=== PATIENT | female | born 1980 | race Caucasian/White ===

== ENCOUNTER 2017-04-11 19:04 | Emergency (ER) | payer OTHER ==
[~2017-04-11] VITALS: Ht 162.6 cm; Wt 79.9 kg
[2017-04-11] MEDS ORDERED: ZITHROMAX Z-PA250 MG PO (20:17)
[2017-04-11] MEDS ORDERED: ROBITUSSIN AC,T10 ML PO (20:17)
[2017-04-11] MEDS ORDERED: PREDNISONE20 MG PO (20:18)
[2017-04-11] MEDS ORDERED: PHENERGAN1.25 MG/ML PO (20:19)
[2017-04-11 20:26] VITALS: BP 113/82
== END 2017-04-11 20:27 | disposition home or self-care (01) ==
LOC: EME 19:04
DX: J20.9 Acute bronchitis, unspecified (principal); R59.1 Generalized enlarged lymph nodes; R11.2 Nausea with vomiting, unspecified; R19.7 Diarrhea, unspecified; F17.200 Nicotine dependence, unspecified, uncomplicated; R51 Headache
CPT/HCPCS: 71020; 93005; 99281; 99284

== ENCOUNTER 2017-04-18 10:58 | Emergency (ER) | payer OTHER ==
[~2017-04-18] VITALS: Ht 162.6 cm; Wt 81.5 kg
[~2017-04-18 10:58] MED LIST: PHENERGAN1.25 MG/ML PO; PREDNISONE20 MG PO; ROBITUSSIN AC,T10 ML PO; ZITHROMAX Z-PA250 MG PO
[2017-04-18] MEDS ORDERED: LIDOCAINE20 MG/1 M5 PO (13:50)
[2017-04-18] MEDS ORDERED: CHLORASEPTIC177 ML MM (13:50)
[2017-04-18 14:40] VITALS: BP 119/69
== END 2017-04-18 14:44 | disposition home or self-care (01) ==
LOC: EME 10:58
DX: J42 Unspecified chronic bronchitis (principal); J02.9 Acute pharyngitis, unspecified; F17.200 Nicotine dependence, unspecified, uncomplicated; F10.10 Alcohol abuse, uncomplicated
CPT/HCPCS: 94640; 99281; 99283

== ENCOUNTER 2017-04-29 11:48 | Emergency (ER) | payer OTHER ==
[~2017-04-29] VITALS: Ht 160 cm; Wt 81.6 kg
[~2017-04-29 11:48] MED LIST changes: +CHLORASEPTIC177 ML MM; +LIDOCAINE20 MG/1 M5 PO
[2017-04-29 12:56] LABS: MCH 28.3 PG (29.0-34.0); MCHC 33.1 G/DL (30.0-36.0); MCV 85.5 FL (83-99); MEAN PLAT.VOLUME 8.1 uM^3 (9.5-12.4); PLATELET COUNT 373 K/uL (156-360); RBC DIS.WIDTH-SD 46.5 % (39-53); RED BLOOD COUNT 4.56 M/uL (3.80-5.20); WHITE BLOOD COUNT 7.1 K/uL (4.1-10.2)
[2017-04-29 13:04] LABS: CHLORIDE 109 mEq/L (99-109); POTASSIUM 3.7 mEq/L (3.7-5.4); SODIUM 139 mEq/L (136-147)
[2017-04-29] MEDS ORDERED: GABAPENTIN300 MG PO (13:04)
[2017-04-29] MEDS ORDERED: SAPHRIS10 MG SL (13:04)
[2017-04-29] MEDS ORDERED: MONTELUKAST SOD10 MG PO (13:05)
[2017-04-29] MEDS ORDERED: GABAPENTIN800 MG PO (13:05)
[2017-04-29 13:06] LABS: GLUCOSE 101 mg/dL (70-99)
[2017-04-29] MEDS ORDERED: STRATTERA40 MG PO (13:06)
[2017-04-29] MEDS ORDERED: ROPINIROLE HC0.25 MG PO (13:06)
[2017-04-29 13:07] LABS: ANION GAP 8 MEQ/L (2-14)
[2017-04-29] MEDS ORDERED: DOXEPIN HCL25 MG PO (13:07)
[2017-04-29 13:10] LABS: GFR ESTIMATE (CALCULATED) > 59 mL/min/
[2017-04-29 13:11] LABS: UREA NITROGEN (BUN) 14 mg/dL (9-23)
[2017-04-29] MEDS ORDERED: LIDOCAINE20 MG/1 M5 PO (14:57)
[2017-04-29] MEDS ORDERED: PREDNISONE50 MG PO (14:57)
[2017-04-29 15:06] VITALS: BP 138/84
== END 2017-04-29 15:19 | disposition left against medical advice (07) ==
LOC: EME 11:48
DX: J42 Unspecified chronic bronchitis (principal); R07.89 Other chest pain; J02.9 Acute pharyngitis, unspecified; F17.210 Nicotine dependence, cigarettes, uncomplicated
CPT/HCPCS: 71020; 80048; 85027; 93005; 99281; 99285

== ENCOUNTER 2017-09-28 20:17 | Inpatient (IN) | payer OTHER ==
[~2017-09-28] VITALS: Ht 162.6 cm; Wt 70.6 kg
[~2017-09-28 20:17] MED LIST changes: +DOXEPIN HCL25 MG PO; +GABAPENTIN300 MG PO; +GABAPENTIN800 MG PO; +MONTELUKAST SOD10 MG PO; +PREDNISONE50 MG PO; +ROPINIROLE HC0.25 MG PO; +SAPHRIS10 MG SL; +STRATTERA40 MG PO
[2017-09-28 21:08] LABS: HEMATOCRIT 35.3 % (36.0-46.0); MCH 31.5 PG (29.0-34.0); MCV 87.6 FL (83-99); MEAN PLAT.VOLUME 8.3 uM^3 (9.5-12.4); PLATELET COUNT 255 K/uL (156-360); RBC DIS.WIDTH-CV 13.9 % (11.8-14.6); RBC DIS.WIDTH-SD 44.1 % (39-53); RED BLOOD COUNT 4.03 M/uL (3.80-5.20); WHITE BLOOD COUNT 12.1 K/uL (4.1-10.2)
[2017-09-28 21:15] LABS: CHLORIDE 107 mEq/L (99-109); SODIUM 140 mEq/L (136-147)
[2017-09-28 21:16] LABS: GLUCOSE 122 mg/dL (70-99)
[2017-09-28 21:18] LABS: ANION GAP 14 MEQ/L (2-14)
[2017-09-28 21:20] LABS: GFR ESTIMATE (CALCULATED) > 59 mL/min/; SERUM ETHYL ALCOHOL 368 mg/dL
[2017-09-28 21:22] LABS: UREA NITROGEN (BUN) 6 mg/dL (9-23)
[2017-09-28 21:24] LABS: SALICYLATE < 5.0 MG/DL (15-30)
[2017-09-28 22:41] LABS: QUANTITATIVE HCG 41063.5 MIU/ML
[2017-09-28 23:33] LABS: AMPHETAMINE NEGATIVE (500 ng/mL); BENZODIAZEPINES NEGATIVE (150 ng/mL); COCAINE NEGATIVE (150 ng/mL); METHAMPHETAMINE NEGATIVE (500 ng/mL); OPIATES (MORPHINE) NEGATIVE (100 ng/mL); PHENCYCLIDINE NEGATIVE (25 ng/mL); THC CANNABINOIDS NEGATIVE (50 ng/mL); TRICYCLIC ANTIDEPRESSANTS NEGATIVE (300 ng/mL)
[2017-09-28 23:34] LABS: BARBITURATES NEGATIVE (200 ng/mL); INTERNAL CONTROLS VALID? YES; METHADONE NEGATIVE (200 ng/mL); OXYCODONE PRESUMPTIVE POSITIVE (100 ng/mL); PROPOXYPHENE NEGATIVE (300 ng/mL)
[2017-09-29] MEDS ORDERED: GABAPENTIN400 MG PO (11:04)
[2017-09-29] MEDS ORDERED: REQUIP0.25 MG PO (11:05)
[2017-09-29] MEDS ORDERED: DOXEPIN HCL100 MG PO (11:05)
[2017-09-29 11:09] VITALS: BP 135/72
[2017-09-29 11:20] VITALS: BP 135/72
[2017-09-29 15:30] VITALS: BP 124/71
[2017-09-30 08:01] VITALS: BP 105/59
[2017-09-30 15:35] VITALS: BP 129/63
[2017-10-01 07:26] VITALS: BP 110/57
[2017-10-01] MEDS ORDERED: PRENATAL VITAM1 EAC6 PO (11:05)
[2017-10-01] MEDS ORDERED: FOLIC ACID1 MG PO (11:05)
[2017-10-01] MEDS ORDERED: CITALOPRAM HBR10 MG PO (11:05)
[2017-10-01] MEDS ORDERED: OXCARBAZEPINE150 MG PO (11:05)
== END 2017-10-01 13:04 | disposition home or self-care (01) | DRG 781 ==
LOC: EME 20:17 → 1WEST 09-29 09:16 → EDOF 09-29 09:16 → 1WEST 09-29 09:16 → ENRESERV 09-29 10:53 → 1WEST 09-29 10:53
PROVIDERS: Emergency Medicine
DX: O99.342 Other mental disorders complicating pregnancy, second trimester (principal); R45.851 Suicidal ideations; F31.9 Bipolar disorder, unspecified; F60.3 Borderline personality disorder; F41.9 Anxiety disorder, unspecified; O99.312 Alcohol use complicating pregnancy, second trimester; F10.229 Alcohol dependence with intoxication, unspecified; Y90.8 Blood alcohol level of 240 mg/100 ml or more; O99.332 Smoking (tobacco) complicating pregnancy, second trimester; F17.200 Nicotine dependence, unspecified, uncomplicated; O99.512 Diseases of the respiratory system complicating pregnancy, second trimester; J42 Unspecified chronic bronchitis; O99.89 Other specified diseases and conditions complicating pregnancy, childbirth and the puerperium; M79.7 Fibromyalgia; Z56.0 Unemployment, unspecified
CPT/HCPCS: 80048; 84702; 85027; 90837; 97166 GO; 99281; 99284; G0480; J2060; Q0169

== ENCOUNTER 2017-10-07 12:39 | Inpatient (IN) | payer OTHER ==
[2017-10-07] VITALS (15 sets, daily range): BP systolic 121–162; BP diastolic 61–88
[~2017-10-07] VITALS: Ht 162.6 cm; Wt 73.6 kg
[~2017-10-07 12:39] MED LIST changes: +CITALOPRAM HBR10 MG PO; +DOXEPIN HCL100 MG PO; +FOLIC ACID1 MG PO; +GABAPENTIN400 MG PO; +OXCARBAZEPINE150 MG PO; +PRENATAL VITAM1 EAC6 PO; +REQUIP0.25 MG PO
[2017-10-07] MEDS ORDERED: ROXICODONE5 MG PO (13:18)
[2017-10-07] MEDS ORDERED: NEURONTIN400 MG PO (13:18)
[2017-10-07] MEDS ORDERED: DOXEPIN HCL100 MG PO (13:20)
[2017-10-07] MEDS ORDERED: REQUIP0.25 MG PO (13:21)
[2017-10-07 14:10] LABS: AMPHETAMINE NEGATIVE (500 ng/mL); BARBITURATES NEGATIVE (200 ng/mL); BENZODIAZEPINES PRESUMPTIVE POSITIVE (150 ng/mL); COCAINE NEGATIVE (150 ng/mL); METHADONE NEGATIVE (200 ng/mL); METHAMPHETAMINE NEGATIVE (500 ng/mL); OPIATES (MORPHINE) NEGATIVE (100 ng/mL); OXYCODONE PRESUMPTIVE POSITIVE (100 ng/mL); PHENCYCLIDINE NEGATIVE (25 ng/mL); THC CANNABINOIDS NEGATIVE (50 ng/mL); TRICYCLIC ANTIDEPRESSANTS NEGATIVE (300 ng/mL)
[2017-10-07 14:11] LABS: ADD MEDTOX COMMENT Y; INTERNAL CONTROLS VALID? YES; PROPOXYPHENE NEGATIVE (300 ng/mL)
[2017-10-07 14:28] LABS: EOSINOPHIL (%) 0.4 % (0-5); EOSINOPHIL COUNT 0.1 K/uL (0-0.3); IMMATURE GRANULOCYTE (%) 3.6 % (0.0-0.7); IMMATURE GRANULOCYTE COUNT 0.7 K/uL; INSTRUMENT ABS NEUTROPHIL CT 17.5 K/uL; LYMPHOCYTE COUNT 1.4 K/uL (1.0-2.8); MCH 30.3 PG (29.0-34.0); MCHC 33.5 G/DL (30.0-36.0); MCV 90.4 FL (83-99); MEAN PLAT.VOLUME 8.6 uM^3 (9.5-12.4); MONOCYTE (%) 2.9 % (3-12); MONOCYTE COUNT 0.6 K/uL (0-0.8); NEUTROPHIL (%) 86.2 % (45-76); NEUTROPHIL COUNT 17.5 K/uL (1.8-6.4); PLATELET COUNT 191 K/uL (156-360); RBC DIS.WIDTH-CV 13.6 % (11.8-14.6); RBC DIS.WIDTH-SD 44.5 % (39-53); RED BLOOD COUNT 3.43 M/uL (3.80-5.20); WHITE BLOOD COUNT 20.3 K/uL (4.1-10.2)
[2017-10-07 14:36] LABS: BENZODIAZEPINES, URINE SCREEN POSITIVE (200 ng/mL)
[2017-10-07 16:35] LABS: PTT 27.7 SEC (25-37)
[2017-10-07 16:37] LABS: FIBRINOGEN 710 mg/dL (150-450)
[2017-10-07] MEDS ORDERED: MOTRIN800 MG PO (22:39)
[2017-10-07] MEDS ORDERED: AUGMENTIN500 MG PO (22:39)
[2017-10-08 00:23] VITALS: BP 137/63
[2017-10-08 01:22] VITALS: BP 115/63
[2017-10-08 06:04] LABS: EOSINOPHIL (%) 1.1 % (0-5); EOSINOPHIL COUNT 0.2 K/uL (0-0.3); HEMATOCRIT 25.2 % (36.0-46.0); IMMATURE GRANULOCYTE (%) 1.3 % (0.0-0.7); IMMATURE GRANULOCYTE COUNT 0.2 K/uL; INSTRUMENT ABS NEUTROPHIL CT 14.2 K/uL; LYMPHOCYTE COUNT 1.9 K/uL (1.0-2.8); MCHC 34.9 G/DL (30.0-36.0); MCV 91.6 FL (83-99); MEAN PLAT.VOLUME 8.8 uM^3 (9.5-12.4); MONOCYTE (%) 3.7 % (3-12); MONOCYTE COUNT 0.6 K/uL (0-0.8); NEUTROPHIL (%) 82.6 % (45-76); NEUTROPHIL COUNT 14.2 K/uL (1.8-6.4); PLATELET COUNT 147 K/uL (156-360); RBC DIS.WIDTH-CV 13.6 % (11.8-14.6); RBC DIS.WIDTH-SD 45.2 % (39-53); RED BLOOD COUNT 2.75 M/uL (3.80-5.20); WHITE BLOOD COUNT 17.2 K/uL (4.1-10.2)
[2017-10-08 09:13] VITALS: BP 107/61
== END 2017-10-08 15:35 | disposition home or self-care (01) | DRG 774 ==
LOC: LDRP-OP 12:39 → 2WEST 12:40
PROVIDERS: Obstetrics & Gynecology
DX: O42.912 Preterm premature rupture of membranes, unspecified as to length of time between rupture and onset of labor, second trimester (principal); O41.1220 Chorioamnionitis, second trimester, not applicable or unspecified; Z3A.18 18 weeks gestation of pregnancy; Z37.1 Single stillbirth; O99.322 Drug use complicating pregnancy, second trimester; F13.10 Sedative, hypnotic or anxiolytic abuse, uncomplicated; O98.42 Viral hepatitis complicating childbirth; B19.20 Unspecified viral hepatitis C without hepatic coma; R45.851 Suicidal ideations; Z91.14 Patient's other noncompliance with medication regimen; O99.314 Alcohol use complicating childbirth; F10.10 Alcohol abuse, uncomplicated; O99.334 Smoking (tobacco) complicating childbirth; F17.200 Nicotine dependence, unspecified, uncomplicated; O99.344 Other mental disorders complicating childbirth; F43.10 Post-traumatic stress disorder, unspecified; F60.3 Borderline personality disorder; F31.9 Bipolar disorder, unspecified; O99.354 Diseases of the nervous system complicating childbirth; G40.909 Epilepsy, unspecified, not intractable, without status epilepticus; G89.29 Other chronic pain
CPT/HCPCS: 71020; 84999; 85025; 85384; 85610; 85730; 88307; G0480; J0295; J7050

== ENCOUNTER 2017-10-15 16:19 | Inpatient (IN) | payer OTHER ==
[~2017-10-15] VITALS: Ht 162.6 cm; Wt 71.0 kg
[~2017-10-15 16:19] MED LIST changes: +AUGMENTIN500 MG PO; +MOTRIN800 MG PO; +NEURONTIN400 MG PO; +ROXICODONE5 MG PO
[2017-10-15 18:11] LABS: HEMATOCRIT 37.7 % (36.0-46.0); MCH 31.5 PG (29.0-34.0); MCV 92.9 FL (83-99); MEAN PLAT.VOLUME 7.9 uM^3 (9.5-12.4); NRBC (%) 0.5 /100 WBC (0-0); PLATELET COUNT 520 K/uL (156-360); RBC DIS.WIDTH-CV 14.1 % (11.8-14.6); RBC DIS.WIDTH-SD 47.7 % (39-53); RED BLOOD COUNT 4.06 M/uL (3.80-5.20); WHITE BLOOD COUNT 14.1 K/uL (4.1-10.2)
[2017-10-15 18:15] LABS: ADD MIUA? YES; BILIRUBIN NEGATIVE; BLOOD LARGE; COLOR YELLOW ((YELLOW)); GLUCOSE (STRIP) NEGATIVE; KETONES NEGATIVE; LEUKOCYTES LARGE; NITRITE NEGATIVE; PROTEIN (STRIP) 100; SPECIFIC GRAVITY 1.006 (1.000-1.030); UROBILINOGEN 0.2 MG/DL (0.2-1.0)
[2017-10-15 18:19] LABS: CHLORIDE 107 mEq/L (99-109); POTASSIUM 3.4 mEq/L (3.7-5.4); SODIUM 144 mEq/L (136-147)
[2017-10-15 18:21] LABS: GLUCOSE 96 mg/dL (70-99)
[2017-10-15 18:22] LABS: ANION GAP 14 MEQ/L (2-14)
[2017-10-15 18:23] LABS: TOTAL BILIRUBIN 0.3 mg/dL (0.0-1.0)
[2017-10-15 18:24] LABS: ALKALINE PHOSPHATASE 96 IU/L (3-129); SERUM ETHYL ALCOHOL 241 mg/dL
[2017-10-15 18:25] LABS: GFR ESTIMATE (CALCULATED) > 59 mL/min/
[2017-10-15 18:26] LABS: UREA NITROGEN (BUN) 7 mg/dL (9-23)
[2017-10-15 18:28] LABS: AMPHETAMINE NEGATIVE (500 ng/mL); BARBITURATES NEGATIVE (200 ng/mL); BENZODIAZEPINES PRESUMPTIVE POSITIVE (150 ng/mL); COCAINE NEGATIVE (150 ng/mL); INTERNAL CONTROLS VALID? YES; METHADONE PRESUMPTIVE POSITIVE (200 ng/mL); METHAMPHETAMINE NEGATIVE (500 ng/mL); OPIATES (MORPHINE) NEGATIVE (100 ng/mL); OXYCODONE NEGATIVE (100 ng/mL); PHENCYCLIDINE NEGATIVE (25 ng/mL); PROPOXYPHENE NEGATIVE (300 ng/mL); THC CANNABINOIDS NEGATIVE (50 ng/mL); TRICYCLIC ANTIDEPRESSANTS NEGATIVE (300 ng/mL)
[2017-10-15 18:29] LABS: ADD MEDTOX COMMENT Y; BACTERIA RARE /HPF; EPITHELIAL CELLS 2+ /HPF; MUCUS NONE SEEN /LPF; RED BLOOD CELLS TNTC /HPF (0-5); WHITE BLOOD CELLS 20-30 /HPF (0-5)
[2017-10-15 18:55] LABS: BENZODIAZEPINES QUANT VALUE 0 NG/ML; BENZODIAZEPINES, URINE SCREEN Negative (200 ng/mL)
[2017-10-15 19:47] LABS: QUANTITATIVE HCG 42.4 MIU/ML
[2017-10-16 03:36] VITALS: BP 112/62
[2017-10-16 07:54] VITALS: BP 112/65
[2017-10-16 11:49] VITALS: BP 121/101
[2017-10-16 15:38] VITALS: BP 106/75
[2017-10-17 07:50] VITALS: BP 104/60
[2017-10-17 10:15] VITALS: BP 112/55
[2017-10-17 15:23] VITALS: BP 143/72
[2017-10-17 20:14] VITALS: BP 130/74
[2017-10-18 07:42] VITALS: BP 111/57
[2017-10-18] MEDS ORDERED: OXCARBAZEPINE300 MG PO (09:49)
[2017-10-18] MEDS ORDERED: TRAZODONE HCL50 MG PO (09:50)
[2017-10-18] MEDS ORDERED: ATARAX,VISTARIL25 MG PO (09:50)
[2017-10-18] MEDS ORDERED: NEURONTIN400 MG PO (09:52)
== END 2017-10-18 11:19 | disposition home or self-care (01) | DRG 897 ==
LOC: EME 16:19 → EDOF 10-16 00:43 → 1WEST 10-16 00:43 → ENRESERV 10-16 03:29 → 1WEST 10-16 03:30
PROVIDERS: Emergency Medicine
DX: F10.229 Alcohol dependence with intoxication, unspecified (principal); R45.851 Suicidal ideations; F06.31 Mood disorder due to known physiological condition with depressive features; Z91.14 Patient's other noncompliance with medication regimen; Z91.19 Patient's noncompliance with other medical treatment and regimen; M79.7 Fibromyalgia; J42 Unspecified chronic bronchitis; F60.3 Borderline personality disorder; F31.9 Bipolar disorder, unspecified; F17.210 Nicotine dependence, cigarettes, uncomplicated; F11.10 Opioid abuse, uncomplicated; G43.909 Migraine, unspecified, not intractable, without status migrainosus; Y90.8 Blood alcohol level of 240 mg/100 ml or more
CPT/HCPCS: 80053; 81003; 84702; 84999; 85027; 87086; 90839; 94640; 94640 76; 97150 GO; 97165 GO; 99202; 99281; 99285; G0480; Q0177

== ENCOUNTER 2017-10-31 17:32 | Inpatient (IN) | payer OTHER ==
[~2017-10-31] VITALS: Ht 170.2 cm; Wt 65.0 kg
[~2017-10-31 17:32] MED LIST changes: +ATARAX,VISTARIL25 MG PO; +OXCARBAZEPINE300 MG PO; +TRAZODONE HCL50 MG PO
[2017-10-31 19:04] LABS: HEMATOCRIT 43.2 % (36.0-46.0); MCH 32.3 PG (29.0-34.0); MCHC 34.3 G/DL (30.0-36.0); MCV 94.3 FL (83-99); RBC DIS.WIDTH-SD 51.1 % (39-53); RED BLOOD COUNT 4.58 M/uL (3.80-5.20); WHITE BLOOD COUNT 5.1 K/uL (4.1-10.2)
[2017-10-31 19:31] LABS: CHLORIDE 108 mEq/L (99-109); POTASSIUM 3.9 mEq/L (3.7-5.4); SODIUM 145 mEq/L (136-147)
[2017-10-31 19:33] LABS: GLUCOSE 82 mg/dL (70-99); TOTAL PROTEIN 7.2 g/dL (6.4-8.3)
[2017-10-31 19:35] LABS: TOTAL BILIRUBIN 0.3 mg/dL (0.0-1.0)
[2017-10-31 19:36] LABS: SERUM ETHYL ALCOHOL 322 mg/dL
[2017-10-31 19:37] LABS: ALKALINE PHOSPHATASE 94 IU/L (3-129); CREATININE 0.6 mg/dL (0.6-1.3); GFR ESTIMATE (CALCULATED) > 59 mL/min/
[2017-10-31 19:38] LABS: AST (GOT) 73 IU/L (2-34); UREA NITROGEN (BUN) 10 mg/dL (9-23)
[2017-10-31 19:40] LABS: ALT (GPT) 27 IU/L (3-49)
[2017-10-31 19:42] LABS: HEMOGLOBIN 14.8 G/DL (11.9-15.5)
[2017-10-31 19:54] LABS: PLAT.SUFFICIENCY ADEQUATE; PLATELET COUNT 187 K/uL (156-360)
[2017-11-01 06:39] LABS: AMPHETAMINE NEGATIVE (500 ng/mL); BENZODIAZEPINES PRESUMPTIVE POSITIVE (150 ng/mL); COCAINE NEGATIVE (150 ng/mL); METHAMPHETAMINE NEGATIVE (500 ng/mL); OPIATES (MORPHINE) NEGATIVE (100 ng/mL); PHENCYCLIDINE NEGATIVE (25 ng/mL); THC CANNABINOIDS NEGATIVE (50 ng/mL); TRICYCLIC ANTIDEPRESSANTS PRESUMPTIVE POSITIVE (300 ng/mL)
[2017-11-01 06:40] LABS: BARBITURATES NEGATIVE (200 ng/mL); BUPRENORPHINE NEGATIVE (10 ng/mL); METHADONE NEGATIVE (200 ng/mL); OXYCODONE NEGATIVE (100 ng/mL); PROPOXYPHENE NEGATIVE (300 ng/mL)
[2017-11-01 07:20] LABS: BENZODIAZEPINES, URINE SCREEN POSITIVE (200 ng/mL)
[2017-11-01 09:38] VITALS: BP 128/70
[2017-11-01 15:37] VITALS: BP 130/64
[2017-11-01 18:44] VITALS: BP 128/78
[2017-11-02 07:49] VITALS: BP 128/60
[2017-11-02] MEDS ORDERED: REQUIP0.25 MG PO (09:13)
[2017-11-02] MEDS ORDERED: TRAZODONE HCL50 MG PO (09:13)
[2017-11-02] MEDS ORDERED: OXCARBAZEPINE300 MG PO (09:13)
[2017-11-02] MEDS ORDERED: NEURONTIN400 MG PO (09:13)
[2017-11-02] MEDS ORDERED: ANTABUSE250 MG PO (09:15)
[2017-11-02] MEDS ORDERED: REMERON15 M2 PO (09:18)
== END 2017-11-02 10:28 | disposition home or self-care (01) | DRG 885 ==
LOC: EME 17:32 → EDOF 11-01 06:58 → ENRESERV 11-01 09:24 → 1WEST 11-01 09:25
PROVIDERS: Emergency Medicine
DX: F31.9 Bipolar disorder, unspecified (principal); F60.3 Borderline personality disorder; R45.851 Suicidal ideations; Z91.14 Patient's other noncompliance with medication regimen; F10.229 Alcohol dependence with intoxication, unspecified; F13.10 Sedative, hypnotic or anxiolytic abuse, uncomplicated; Z91.19 Patient's noncompliance with other medical treatment and regimen; F17.200 Nicotine dependence, unspecified, uncomplicated; M79.7 Fibromyalgia; J42 Unspecified chronic bronchitis; R32 Unspecified urinary incontinence; Y90.8 Blood alcohol level of 240 mg/100 ml or more; Z56.0 Unemployment, unspecified
CPT/HCPCS: 80053; 84703; 84999; 85027; 90837; 94640; 94640 76; 97150 GO; 97165 GO; 99202; 99281; 99285; G0480; J3486

== ENCOUNTER 2017-11-26 16:05 | Inpatient (IN) | payer OTHER ==
[~2017-11-26] VITALS: Ht 162.6 cm; Wt 68.0 kg
[~2017-11-26 16:05] MED LIST changes: +ANTABUSE250 MG PO; +REMERON15 M2 PO
[2017-11-26 16:39] LABS: HEMATOCRIT 45.7 % (36.0-46.0); HEMOGLOBIN 15.7 G/DL (11.9-15.5); MCH 33.1 PG (29.0-34.0); MCHC 34.4 G/DL (30.0-36.0); MCV 96.2 FL (83-99); NRBC (%) 0.4 /100 WBC (0-0); PLATELET COUNT 141 K/uL (156-360); RBC DIS.WIDTH-CV 14.6 % (11.8-14.6); RBC DIS.WIDTH-SD 51.5 % (39-53); RED BLOOD COUNT 4.75 M/uL (3.80-5.20); WHITE BLOOD COUNT 9.4 K/uL (4.1-10.2)
[2017-11-26 16:55] LABS: CHLORIDE 91 mEq/L (99-109); SODIUM 140 mEq/L (136-147)
[2017-11-26 16:57] LABS: GLUCOSE 100 mg/dL (70-99)
[2017-11-26 17:00] LABS: SERUM ETHYL ALCOHOL 332 mg/dL
[2017-11-26 17:01] LABS: CREATININE 0.8 mg/dL (0.6-1.3); GFR ESTIMATE (CALCULATED) > 59 mL/min/
[2017-11-26 17:03] LABS: UREA NITROGEN (BUN) 7 mg/dL (9-23)
[2017-11-26 17:04] LABS: ACETAMINOPHEN (TYLENOL) < 10 mcg/mL (10-30); SALICYLATE < 5.0 MG/DL (15-30)
[2017-11-26 18:27] LABS: COCAINE NEGATIVE (150 ng/mL); METHAMPHETAMINE NEGATIVE (500 ng/mL); OPIATES (MORPHINE) NEGATIVE (100 ng/mL); PHENCYCLIDINE NEGATIVE (25 ng/mL); THC CANNABINOIDS NEGATIVE (50 ng/mL)
[2017-11-26 18:28] LABS: AMPHETAMINE NEGATIVE (500 ng/mL); BARBITURATES NEGATIVE (200 ng/mL); BENZODIAZEPINES PRESUMPTIVE POSITIVE (150 ng/mL); BUPRENORPHINE NEGATIVE (10 ng/mL); METHADONE NEGATIVE (200 ng/mL); OXYCODONE NEGATIVE (100 ng/mL); PROPOXYPHENE NEGATIVE (300 ng/mL); TRICYCLIC ANTIDEPRESSANTS NEGATIVE (300 ng/mL)
[2017-11-26 22:45] LABS: BENZODIAZEPINES, URINE SCREEN Negative (200 ng/mL)
[2017-11-27 05:35] VITALS: BP 139/82
[2017-11-27 08:08] VITALS: BP 129/77
[2017-11-27 09:50] LABS: QUANTITATIVE HCG < 4.0 MIU/ML
[2017-11-27 15:30] VITALS: BP 125/72
[2017-11-27 21:17] VITALS: BP 127/94; BP 137/94
[2017-11-28 09:10] VITALS: BP 134/86
[2017-11-28 15:08] VITALS: BP 124/62
[2017-11-29 08:00] VITALS: BP 112/59
[2017-11-29 15:24] VITALS: BP 129/90
[2017-11-30 07:50] VITALS: BP 138/63
[2017-11-30] MEDS ORDERED: NEURONTIN400 MG PO (09:13)
[2017-11-30] MEDS ORDERED: REQUIP0.25 MG PO (09:13)
[2017-11-30] MEDS ORDERED: PRAZOSIN HCL1 MG PO (09:13)
[2017-11-30] MEDS ORDERED: OXCARBAZEPINE300 MG PO (09:13)
[2017-11-30] MEDS ORDERED: MIRTAZAPINE30 MG PO (09:13)
== END 2017-11-30 11:10 | disposition home or self-care (01) | DRG 885 ==
LOC: EME 16:05 → EDOF 11-27 02:54 → 1WEST 11-27 02:54 → ENRESERV 11-27 05:23 → 1WEST 11-30 11:10
PROVIDERS: Emergency Medicine
PROC: HZ2ZZZZ Detoxification Services for Substance Abuse Treatment (ICD-10-PCS; principal; 2017-11-27)
DX: F31.9 Bipolar disorder, unspecified (principal); F10.239 Alcohol dependence with withdrawal, unspecified; R45.851 Suicidal ideations; F60.3 Borderline personality disorder; G25.81 Restless legs syndrome; M79.7 Fibromyalgia; G43.909 Migraine, unspecified, not intractable, without status migrainosus; F17.200 Nicotine dependence, unspecified, uncomplicated; Z91.14 Patient's other noncompliance with medication regimen; Z59.0 Homelessness
CPT/HCPCS: 80048; 84702; 84999; 85027; 90839; 97150 GO; 97165 GO; 99281; 99285; G0480; J7030; Q0177

== ENCOUNTER 2018-01-22 11:09 | Inpatient (IN) | payer OTHER ==
[~2018-01-22] VITALS: Ht 162.6 cm; Wt 67.4 kg
[~2018-01-22 11:09] MED LIST changes: +MIRTAZAPINE30 MG PO; +PRAZOSIN HCL1 MG PO
[2018-01-22 12:08] LABS: HEMATOCRIT 41.5 % (36.0-46.0); HEMOGLOBIN 15.1 G/DL (11.9-15.5); MCH 33.9 PG (29.0-34.0); MCHC 36.4 G/DL (30.0-36.0); PLATELET COUNT 87 K/uL (156-360); RBC DIS.WIDTH-CV 15.5 % (11.8-14.6); RBC DIS.WIDTH-SD 53.1 % (39-53); RED BLOOD COUNT 4.46 M/uL (3.80-5.20); WHITE BLOOD COUNT 9.4 K/uL (4.1-10.2)
[2018-01-22 12:18] LABS: ALBUMIN 3.3 g/dL (3.2-4.8); CHLORIDE 95 mEq/L (99-109); POTASSIUM 2.7 mEq/L (3.7-5.4); SODIUM 137 mEq/L (136-147)
[2018-01-22 12:21] LABS: GLUCOSE 92 mg/dL (70-99); TOTAL PROTEIN 6.6 g/dL (6.4-8.3)
[2018-01-22 12:24] LABS: ALKALINE PHOSPHATASE 146 IU/L (3-129); CREATININE 0.7 mg/dL (0.6-1.3); GFR ESTIMATE (CALCULATED) > 59 mL/min/
[2018-01-22 12:25] LABS: UREA NITROGEN (BUN) 13 mg/dL (9-23)
[2018-01-22 12:26] LABS: AST (GOT) 404 IU/L (2-34); DIRECT BILIRUBIN 0.6 mg/dL (0.0-0.3)
[2018-01-22 12:27] LABS: ALT (GPT) 149 IU/L (3-49)
[2018-01-22 12:41] LABS: LIPASE 2047 U/L (1.0-51.0)
[2018-01-22 12:59] LABS: APPEARANCE CLOUDY ((CLEAR)); BILIRUBIN NEGATIVE; BLOOD MODERATE; COLOR AMBER ((YELLOW)); GLUCOSE (STRIP) NEGATIVE; KETONES NEGATIVE; LEUKOCYTES LARGE; NITRITE NEGATIVE; PROTEIN (STRIP) >=500; SPECIFIC GRAVITY 1.014 (1.000-1.030)
[2018-01-22 13:18] LABS: EPITHELIAL CELLS 2+ /HPF
[2018-01-22 13:19] LABS: BACTERIA 2+ /HPF; MUCUS NONE SEEN /LPF; RED BLOOD CELLS 0-5 /HPF (0-5); UCUL ADDED? YES; WHITE BLOOD CELLS 40-50 /HPF (0-5)
[2018-01-22] MEDS ORDERED: GABAPENTIN600 MG PO (16:04)
[2018-01-22] MEDS ORDERED: IBUPROFEN800 MG PO (16:05)
[2018-01-22] MEDS ORDERED: OXYCODONE HCL5 MG PO (16:05)
[2018-01-22 17:39] LABS: ACETAMINOPHEN (TYLENOL) < 10 mcg/mL (10-30); SALICYLATE < 5.0 MG/DL (15-30)
[2018-01-22 18:20] LABS: TRIGLYCERIDES 218 MG/DL (Normal: <150)
[2018-01-22 19:50] VITALS: BP 103/65
[2018-01-22 23:43] LABS: BENZODIAZEPINES, URINE SCREEN POSITIVE (200 ng/mL)
[2018-01-23 03:31] VITALS: BP 123/75
[2018-01-23 07:07] LABS: BASOPHIL (%) 0.4 % (0-1); EOSINOPHIL (%) 2.5 % (0-5); EOSINOPHIL COUNT 0.1 K/uL (0-0.3); HEMATOCRIT 36.5 % (36.0-46.0); IMMATURE GRANULOCYTE (%) 0.7 % (0.0-0.7); LYMPHOCYTE (%) 21.8 % (15-42); MCH 32.6 PG (29.0-34.0); MCV 96.1 FL (83-99); MONOCYTE (%) 4.7 % (3-12); MONOCYTE COUNT 0.2 K/uL (0-0.8); NEUTROPHIL (%) 69.9 % (45-76); NEUTROPHIL COUNT 3.1 K/uL (1.8-6.4); RBC DIS.WIDTH-CV 15.9 % (11.8-14.6); RBC DIS.WIDTH-SD 56.4 % (39-53); WHITE BLOOD COUNT 4.5 K/uL (4.1-10.2)
[2018-01-23 07:15] LABS: HEMOGLOBIN 12.4 G/DL (11.9-15.5)
[2018-01-23 07:24] LABS: ALBUMIN 2.2 G/DL (3.2-4.8); ALKALINE PHOSPHATASE 84 IU/L (3-129); ALT (GPT) 76 IU/L (3-49); AST (GOT) 185 IU/L (2-34); CHLORIDE 108 MEQ/L (99-109); CREATININE 0.6 MG/DL (0.6-1.3); GFR ESTIMATE (CALCULATED) > 59 mL/min/; GLUCOSE 70 mg/dL (70-99); POTASSIUM 2.7 MEQ/L (3.7-5.4); SODIUM 141 MEQ/L (136-147); TOTAL BILIRUBIN 0.8 MG/DL (0.0-1.0); TOTAL PROTEIN 4.3 G/DL (6.4-8.3); UREA NITROGEN (BUN) 11 mg/dL (9-23)
[2018-01-23 07:47] LABS: PLAT.SUFFICIENCY DECREASED
[2018-01-23 07:48] LABS: PLATELET COUNT 56 K/uL (156-360)
[2018-01-23 08:12] LABS: MAGNESIUM 0.7 mg/dl (1.3-2.7)
[2018-01-23 13:12] VITALS: BP 112/74
[2018-01-23 15:44] VITALS: BP 113/79
[2018-01-23 19:11] VITALS: BP 108/74
[2018-01-23 22:56] VITALS: BP 126/60
[2018-01-24 04:40] VITALS: BP 108/73
[2018-01-24 06:50] VITALS: BP 102/55
[2018-01-24 06:51] LABS: HEMATOCRIT 37.7 % (36.0-46.0); HEMOGLOBIN 12.4 G/DL (11.9-15.5); MCH 32.9 PG (29.0-34.0); MCHC 32.9 G/DL (30.0-36.0); RBC DIS.WIDTH-CV 16.4 % (11.8-14.6); RBC DIS.WIDTH-SD 60.1 % (39-53); RED BLOOD COUNT 3.77 M/uL (3.80-5.20); WHITE BLOOD COUNT 4.9 K/uL (4.1-10.2)
[2018-01-24 07:08] LABS: PLATELET COUNT 80 K/uL (156-360)
[2018-01-24 07:25] LABS: CHLORIDE 109 MEQ/L (99-109); CREATININE 0.6 MG/DL (0.6-1.3); GFR ESTIMATE (CALCULATED) > 59 mL/min/; SODIUM 139 MEQ/L (136-147); UREA NITROGEN (BUN) 7 mg/dL (9-23)
[2018-01-24 07:28] LABS: GLUCOSE 107 mg/dL (70-99); MAGNESIUM 1.3 mg/dl (1.3-2.7); POTASSIUM 3.5 MEQ/L (3.7-5.4)
[2018-01-24 09:44] LABS: LIPASE 126 U/L (1.0-51.0)
[2018-01-24 11:50] VITALS: BP 112/64
[2018-01-24 15:05] VITALS: BP 152/65
[2018-01-24 19:26] VITALS: BP 124/76
[2018-01-24 19:46] LABS: SOURCE URINE
[2018-01-24 21:15] LABS: C DIFF TOXIN NEGATIVE (NEGATIVE)
[2018-01-24 23:42] VITALS: BP 129/79
[2018-01-25 04:13] VITALS: BP 133/81
[2018-01-25 06:53] LABS: HEMATOCRIT 34.9 % (36.0-46.0); HEMOGLOBIN 11.4 G/DL (11.9-15.5); MCHC 32.7 G/DL (30.0-36.0); MCV 101.2 FL (83-99); PLATELET COUNT 97 K/uL (156-360); RBC DIS.WIDTH-CV 16.4 % (11.8-14.6); RBC DIS.WIDTH-SD 61.2 % (39-53); RED BLOOD COUNT 3.45 M/uL (3.80-5.20); WHITE BLOOD COUNT 3.7 K/uL (4.1-10.2)
[2018-01-25 07:21] LABS: CHLORIDE 111 MEQ/L (99-109); CREATININE 0.6 MG/DL (0.6-1.3); GFR ESTIMATE (CALCULATED) > 59 mL/min/; GLUCOSE 104 mg/dL (70-99); MAGNESIUM 1.2 mg/dl (1.3-2.7); POTASSIUM 3.8 MEQ/L (3.7-5.4); SODIUM 140 MEQ/L (136-147); UREA NITROGEN (BUN) 6 mg/dL (9-23)
[2018-01-25 07:28] VITALS: BP 121/77
[2018-01-25 07:58] LABS: ALBUMIN 2.2 G/DL (3.2-4.8)
[2018-01-25 11:52] VITALS: BP 133/68
[2018-01-25 13:13] LABS: CHLAMYDIA TRACHOMATIS NEGATIVE; NEISSERIA GONORRHOEAE NEGATIVE
[2018-01-25 13:59] LABS: FOLIC ACID (FOLATE) 7.3 NG/ML (5.0-22.0)
[2018-01-25 17:32] VITALS: BP 112/68
[2018-01-25 19:57] VITALS: BP 130/78
[2018-01-25 23:47] VITALS: BP 139/87
[2018-01-26 03:08] VITALS: BP 134/90
[2018-01-26 07:27] LABS: HEMATOCRIT 36.1 % (36.0-46.0); MCH 32.7 PG (29.0-34.0); MCHC 33.2 G/DL (30.0-36.0); MCV 98.4 FL (83-99); RBC DIS.WIDTH-CV 16.8 % (11.8-14.6); RBC DIS.WIDTH-SD 61.1 % (39-53); RED BLOOD COUNT 3.67 M/uL (3.80-5.20); WHITE BLOOD COUNT 3.9 K/uL (4.1-10.2)
[2018-01-26 07:28] LABS: PLATELET COUNT 165 K/uL (156-360)
[2018-01-26 08:13] LABS: ALBUMIN 2.4 G/DL (3.2-4.8); ALKALINE PHOSPHATASE 84 IU/L (3-129); ALT (GPT) 59 IU/L (3-49); CHLORIDE 109 MEQ/L (99-109); CREATININE 0.6 MG/DL (0.6-1.3); GFR ESTIMATE (CALCULATED) > 59 mL/min/; GLUCOSE 93 mg/dL (70-99); POTASSIUM 3.6 MEQ/L (3.7-5.4); SODIUM 141 MEQ/L (136-147); TOTAL PROTEIN 4.6 G/DL (6.4-8.3); UREA NITROGEN (BUN) 5 mg/dL (9-23)
[2018-01-26 08:16] LABS: AST (GOT) 97 IU/L (2-34); TOTAL BILIRUBIN 0.5 MG/DL (0.0-1.0)
[2018-01-26 08:18] VITALS: BP 135/86
[2018-01-26 11:33] LABS: HEPATITIS B SURFACE ANTIGEN Nonreactive
[2018-01-26 11:34] LABS: ANTI-HEPATITIS A VIRUS (IGM) Nonreactive
[2018-01-26 11:35] LABS: ANTI-HEPATITIS B CORE (IGM) Nonreactive
[2018-01-26 11:37] LABS: HEPATITIS C ANTIBODY REACTIVE
[2018-01-26] MEDS ORDERED: BACTRIM,SEPT1 TABLET PO ×2 (13:00→13:01)
[2018-01-26] MEDS ORDERED: FOLIC ACID1 MG PO (13:00)
[2018-01-26] MEDS ORDERED: Thiamine,Vitamin B1 PO (13:00)
[2018-01-26] MEDS ORDERED: CHLORDIAZEPOXID25 MG PO (13:00)
[2018-01-26] MEDS ORDERED: NICOTINE PATCH1 EAC2 TD (13:00)
== END 2018-01-26 16:59 | disposition home or self-care (01) | DRG 439 ==
LOC: EME 11:09 → 5EAST 16:28 → EDOF 16:28 → ENRESERV 16:29 → 5EAST 19:08
PROVIDERS: Emergency Medicine; Internal Medicine; Physician Assistant
DX: K85.20 Alcohol induced acute pancreatitis without necrosis or infection (principal); E87.6 Hypokalemia; E86.0 Dehydration; N30.00 Acute cystitis without hematuria; B96.20 Unspecified Escherichia coli [E. coli] as the cause of diseases classified elsewhere; F31.9 Bipolar disorder, unspecified; F17.200 Nicotine dependence, unspecified, uncomplicated; F10.20 Alcohol dependence, uncomplicated; F60.3 Borderline personality disorder; E83.42 Hypomagnesemia; E83.51 Hypocalcemia; N30.91 Cystitis, unspecified with hematuria; K76.0 Fatty (change of) liver, not elsewhere classified; K56.7 Ileus, unspecified; F41.9 Anxiety disorder, unspecified; K52.9 Noninfective gastroenteritis and colitis, unspecified; Z82.49 Family history of ischemic heart disease and other diseases of the circulatory system; Z83.3 Family history of diabetes mellitus; Z59.0 Homelessness; G89.29 Other chronic pain
CPT/HCPCS: 74176; 76705; 80048; 80053; 80074; 80076; 80306 90; 81003; 82040; 82310; 82330; 82607; 82746; 83690; 83735; 84478; 85025; 85027; 87077; 87086; 87186; 87491; 87493; 87591; 99281; 99285; C9113; G0480; J0610; J0696; J1644; J1885; J2060; J2405; J2543; J3411; J3475; J3480; J7030; J7050

== ENCOUNTER 2018-02-13 19:54 | Emergency (ER) | payer OTHER ==
[~2018-02-13] VITALS: Ht 162.6 cm; Wt 72.2 kg
[~2018-02-13 19:54] MED LIST changes: +BACTRIM,SEPT1 TABLET PO; +CHLORDIAZEPOXID25 MG PO; +GABAPENTIN600 MG PO; +IBUPROFEN800 MG PO; +NICOTINE PATCH1 EAC2 TD; +OXYCODONE HCL5 MG PO; +Thiamine,Vitamin B1 PO
[2018-02-14 06:01] VITALS: BP 137/79
== END 2018-02-14 06:02 | disposition home or self-care (01) ==
LOC: EME → EDBD 19:54 → EME 02-14 06:02
DX: F10.129 Alcohol abuse with intoxication, unspecified (principal); J44.9 Chronic obstructive pulmonary disease, unspecified; M79.7 Fibromyalgia; F31.9 Bipolar disorder, unspecified; F32.9 Major depressive disorder, single episode, unspecified; F17.200 Nicotine dependence, unspecified, uncomplicated; Z79.891 Long term (current) use of opiate analgesic; Z88.8 Allergy status to other drugs, medicaments and biological substances
CPT/HCPCS: 99281; 99285

== ENCOUNTER 2018-02-23 13:19 | Inpatient (IN) | payer OTHER ==
[~2018-02-23] VITALS: Ht 162.6 cm; Wt 68.7 kg
[2018-02-23] MEDS ORDERED: THIAMINE HCL100 MG PO (13:30)
[2018-02-23] MEDS ORDERED: MULTIVITAMIN1 EAC2 PO (13:30)
[2018-02-23 14:25] LABS: ALBUMIN 3.2 g/dL (3.2-4.8); CHLORIDE 94 mEq/L (99-109); POTASSIUM 3.1 mEq/L (3.7-5.4); SODIUM 140 mEq/L (136-147)
[2018-02-23 14:27] LABS: GLUCOSE 78 mg/dL (70-99); HEMATOCRIT 44.4 % (36.0-46.0); MCH 35.6 PG (29.0-34.0); MCV 98.9 FL (83-99); NRBC (%) 0.4 /100 WBC (0-0); RBC DIS.WIDTH-CV 16.2 % (11.8-14.6); RBC DIS.WIDTH-SD 59.6 % (39-53); TOTAL PROTEIN 6.1 g/dL (6.4-8.3)
[2018-02-23 14:29] LABS: TOTAL BILIRUBIN 1.8 mg/dL (0.0-1.0)
[2018-02-23 14:30] LABS: SERUM ETHYL ALCOHOL 379 mg/dL
[2018-02-23 14:31] LABS: ALKALINE PHOSPHATASE 131 IU/L (3-129); CREATININE 0.7 mg/dL (0.6-1.3); GFR ESTIMATE (CALCULATED) > 59 mL/min/; RED BLOOD COUNT 4.49 M/uL (3.80-5.20)
[2018-02-23 14:32] LABS: UREA NITROGEN (BUN) 17 mg/dL (9-23)
[2018-02-23 14:33] LABS: AST (GOT) 365 IU/L (2-34)
[2018-02-23 14:34] LABS: ALT (GPT) 126 IU/L (3-49)
[2018-02-23 14:49] LABS: LIPASE 3444 U/L (1.0-51.0)
[2018-02-23 15:13] LABS: PLATELET CLUMPS PRESENT - PLATELET COUNTS APPEARS DECREASED; PLATELET COUNT UNABLE TO REPORT K/uL (156-360)
[2018-02-23 17:30] LABS: QUANTITATIVE HCG < 4.0 MIU/ML
[2018-02-23 17:33] VITALS: BP 137/88
[2018-02-23 17:54] VITALS: BP 137/88
[2018-02-23 18:08] LABS: TRIGLYCERIDES 167 MG/DL (Normal: <150)
[2018-02-23 20:50] VITALS: BP 134/68
[2018-02-24 00:35] VITALS: BP 138/97
[2018-02-24 03:12] VITALS: BP 132/90
[2018-02-24 05:26] LABS: HEMATOCRIT 37.8 % (36.0-46.0); IMM.PLATELET FRACTION 6.7 (1-7); MCH 34.8 PG (29.0-34.0); MCHC 34.9 G/DL (30.0-36.0); MCV 99.7 FL (83-99); NRBC (%) 0.3 /100 WBC (0-0); RBC DIS.WIDTH-CV 16.6 % (11.8-14.6); RBC DIS.WIDTH-SD 61.5 % (39-53); RED BLOOD COUNT 3.79 M/uL (3.80-5.20); WHITE BLOOD COUNT 7.9 K/uL (4.1-10.2)
[2018-02-24 06:24] LABS: HEMOGLOBIN 13.2 G/DL (11.9-15.5); PLATELET COUNT 46 K/uL (156-360)
[2018-02-24 06:39] LABS: BASOPHIL (%) 0.1 % (0-1); EOSINOPHIL (%) 0 % (0-5); IMMATURE GRANULOCYTE (%) 1.4 % (0.0-0.7); LYMPHOCYTE (%) 3.3 % (15-42); LYMPHOCYTE COUNT 0.3 K/uL (1.0-2.8); MONOCYTE (%) 4.9 % (3-12); MONOCYTE COUNT 0.4 K/uL (0-0.8); NEUTROPHIL (%) 90.3 % (45-76); NEUTROPHIL COUNT 7.2 K/uL (1.8-6.4); PLAT.SUFFICIENCY VERY DECREASED
[2018-02-24 07:25] VITALS: BP 146/85
[2018-02-24 09:07] LABS: ALBUMIN 2.9 G/DL (3.2-4.8); ALKALINE PHOSPHATASE 96 IU/L (3-129); ALT (GPT) 72 IU/L (3-49); AST (GOT) 190 IU/L (2-34); CHLORIDE 100 MEQ/L (99-109); CREATININE 0.5 MG/DL (0.6-1.3); GFR ESTIMATE (CALCULATED) > 59 mL/min/; LIPASE 2090 U/L (1.0-51.0); POTASSIUM 3.6 MEQ/L (3.7-5.4); SODIUM 140 MEQ/L (136-147); TOTAL BILIRUBIN 2.1 MG/DL (0.0-1.0); TOTAL PROTEIN 5.6 G/DL (6.4-8.3); UREA NITROGEN (BUN) 16 mg/dL (9-23)
[2018-02-24 09:20] LABS: GLUCOSE 116 mg/dL (70-99)
[2018-02-24 11:11] VITALS: BP 146/83
[2018-02-24] MEDS ORDERED: PRENATAL TABLE1 EAC3 PO (12:27)
[2018-02-24] MEDS ORDERED: CYANOCOBALAM1000 MCG PO (12:28)
[2018-02-24 15:44] VITALS: BP 140/86
[2018-02-24 19:20] VITALS: BP 153/95
[2018-02-25] VITALS (7 sets, daily range): BP systolic 117–137; BP diastolic 78–96
[2018-02-25 05:14] LABS: INTER. NORMALIZED RATIO 1.2
[2018-02-25 05:38] LABS: CHLORIDE 95 MEQ/L (99-109); CREATININE 0.4 MG/DL (0.6-1.3); GFR ESTIMATE (CALCULATED) > 59 mL/min/; LIPASE 204 U/L (1.0-51.0); MAGNESIUM 1.2 mg/dl (1.3-2.7); SODIUM 135 MEQ/L (136-147); UREA NITROGEN (BUN) 6 mg/dL (9-23)
[2018-02-25 05:40] LABS: GLUCOSE 74 mg/dL (70-99)
[2018-02-25 20:36] LABS: HCV RNA (IU/mL) <15 IU/mL (())
[2018-02-26 04:06] VITALS: BP 125/94
[2018-02-26 05:35] LABS: BASOPHIL (%) 0.4 % (0-1); EOSINOPHIL (%) 1.6 % (0-5); EOSINOPHIL COUNT 0.1 K/uL (0-0.3); HEMATOCRIT 33.9 % (36.0-46.0); IMMATURE GRANULOCYTE (%) 1.5 % (0.0-0.7); LYMPHOCYTE (%) 13.5 % (15-42); LYMPHOCYTE COUNT 0.9 K/uL (1.0-2.8); MCH 35.5 PG (29.0-34.0); MCHC 35.4 G/DL (30.0-36.0); MCV 100.3 FL (83-99); MONOCYTE (%) 7.4 % (3-12); MONOCYTE COUNT 0.5 K/uL (0-0.8); NEUTROPHIL (%) 75.6 % (45-76); NEUTROPHIL COUNT 5.1 K/uL (1.8-6.4); NRBC (%) 0.3 /100 WBC (0-0); RBC DIS.WIDTH-CV 14.9 % (11.8-14.6); RED BLOOD COUNT 3.38 M/uL (3.80-5.20); WHITE BLOOD COUNT 6.8 K/uL (4.1-10.2)
[2018-02-26 05:44] LABS: PLATELET COUNT 72 K/uL (156-360)
[2018-02-26 06:09] LABS: ALBUMIN 2.2 G/DL (3.2-4.8); ALKALINE PHOSPHATASE 97 IU/L (3-129); ALT (GPT) 45 IU/L (3-49); AST (GOT) 125 IU/L (2-34); CHLORIDE 95 MEQ/L (99-109); CREATININE 0.4 MG/DL (0.6-1.3); DIRECT BILIRUBIN 0.2 mg/dL (0.0-0.3); GFR ESTIMATE (CALCULATED) > 59 mL/min/; GLUCOSE 72 mg/dL (70-99); LIPASE 122 U/L (1.0-51.0); SODIUM 134 MEQ/L (136-147); UREA NITROGEN (BUN) 5 mg/dL (9-23)
[2018-02-26 06:16] LABS: POTASSIUM 3.7 MEQ/L (3.7-5.4); TOTAL BILIRUBIN 1.1 MG/DL (0.0-1.0); TOTAL PROTEIN 4.4 G/DL (6.4-8.3)
[2018-02-26 07:57] VITALS: BP 112/85
[2018-02-26 11:50] VITALS: BP 112/80
[2018-02-26 16:05] VITALS: BP 113/84
[2018-02-26 20:00] VITALS: BP 132/83
[2018-02-26 23:10] VITALS: BP 124/84
[2018-02-27 03:59] VITALS: BP 123/81
[2018-02-27 08:10] VITALS: BP 121/81
[2018-02-27 11:26] VITALS: BP 105/71
[2018-02-27 12:21] LABS: CHLORIDE 97 MEQ/L (99-109); CREATININE 0.3 MG/DL (0.6-1.3); GFR ESTIMATE (CALCULATED) > 59 mL/min/; SODIUM 135 MEQ/L (136-147); UREA NITROGEN (BUN) 2 mg/dL (9-23)
[2018-02-27 12:22] LABS: GLUCOSE 91 mg/dL (70-99)
[2018-02-27 13:01] LABS: HCV RNA (LOG IU/mL) <1.18 (())
[2018-02-27 16:51] VITALS: BP 116/76
[2018-02-27 23:26] VITALS: BP 111/70
[2018-02-28 05:30] LABS: HEMATOCRIT 32.1 % (36.0-46.0); MCH 35.1 PG (29.0-34.0); MCHC 34.3 G/DL (30.0-36.0); MCV 102.6 FL (83-99); RBC DIS.WIDTH-CV 14.6 % (11.8-14.6); RED BLOOD COUNT 3.13 M/uL (3.80-5.20)
[2018-02-28 05:32] LABS: PLATELET COUNT 129 K/uL (156-360)
[2018-02-28 06:09] LABS: CHLORIDE 99 MEQ/L (99-109); CREATININE 0.5 MG/DL (0.6-1.3); GFR ESTIMATE (CALCULATED) > 59 mL/min/; GLUCOSE 106 mg/dL (70-99); SODIUM 136 MEQ/L (136-147); UREA NITROGEN (BUN) 3 mg/dL (9-23)
[2018-02-28 06:11] LABS: POTASSIUM 4.1 MEQ/L (3.7-5.4)
[2018-02-28 07:45] VITALS: BP 113/80
[2018-02-28 23:40] VITALS: BP 110/64
[2018-03-01 07:17] VITALS: BP 109/72
[2018-03-01] MEDS ORDERED: BENTYL20 MG PO (12:05)
[2018-03-01] MEDS ORDERED: NICOTINE PATCH1 EAC2 TD (12:05)
[2018-03-01] MEDS ORDERED: GABAPENTIN600 MG PO (12:05)
[2018-03-01] MEDS ORDERED: PANTOPRAZOLE SO40 MG PO (12:05)
[2018-03-01] MEDS ORDERED: OXYCODONE HCL5 MG PO (12:05)
== END 2018-03-01 13:57 | disposition home or self-care (01) | DRG 439 ==
LOC: EME 13:19 → 4EAST 16:19 → EDOF 16:19 → ENRESERV 16:22 → 4EAST 17:18 → ENRESERV 02-26 15:28 → CANRESERV 02-26 15:28 → ENRESERV 02-27 14:22 → 5SOUTH 02-27 16:16
PROVIDERS: Emergency Medicine Emergency Medical Services; Internal Medicine; Physician Assistant; Specialist
DX: K85.20 Alcohol induced acute pancreatitis without necrosis or infection (principal); E87.2 Acidosis; F31.30 Bipolar disorder, current episode depressed, mild or moderate severity, unspecified; K76.0 Fatty (change of) liver, not elsewhere classified; K70.10 Alcoholic hepatitis without ascites; F17.210 Nicotine dependence, cigarettes, uncomplicated; E87.6 Hypokalemia; F60.3 Borderline personality disorder; E86.0 Dehydration; G89.29 Other chronic pain; M79.7 Fibromyalgia; R13.10 Dysphagia, unspecified; K86.1 Other chronic pancreatitis; G43.909 Migraine, unspecified, not intractable, without status migrainosus; F10.229 Alcohol dependence with intoxication, unspecified; Y90.8 Blood alcohol level of 240 mg/100 ml or more; D69.59 Other secondary thrombocytopenia; B18.2 Chronic viral hepatitis C; R63.4 Abnormal weight loss; E78.5 Hyperlipidemia, unspecified; J44.9 Chronic obstructive pulmonary disease, unspecified; R16.0 Hepatomegaly, not elsewhere classified; R45.87 Impulsiveness; Z56.0 Unemployment, unspecified; Z59.0 Homelessness
CPT/HCPCS: 71045; 74176; 80048; 80053; 80076; 82330; 83690; 83735; 84478; 84702; 85025; 85027; 85610; 87493; 87522 90; 99281; 99285; C1753; C9113; G0480; J1650; J2060; J2405; J3010; J3411; J3475; J3480; J7030; J7042; J7120

== ENCOUNTER 2018-03-11 08:38 | Emergency (ER) | payer OTHER ==
[~2018-03-11] VITALS: Ht 160 cm; Wt 61.8 kg
[~2018-03-11 08:38] MED LIST changes: +BENTYL20 MG PO; +CYANOCOBALAM1000 MCG PO; +MULTIVITAMIN1 EAC2 PO; +PANTOPRAZOLE SO40 MG PO; +PRENATAL TABLE1 EAC3 PO; +THIAMINE HCL100 MG PO
[2018-03-11 09:03] LABS: APPEARANCE CLOUDY ((CLEAR)); BILIRUBIN NEGATIVE; BLOOD SMALL; COLOR AMBER ((YELLOW)); GLUCOSE (STRIP) NEGATIVE; KETONES 5; LEUKOCYTES LARGE; NITRITE NEGATIVE; PROTEIN (STRIP) >=500; SPECIFIC GRAVITY 1.015 (1.000-1.030)
[2018-03-11 09:05] LABS: BASOPHIL (%) 1.2 % (0-1); BASOPHIL COUNT 0.1 K/uL (0-0.1); EOSINOPHIL (%) 0.2 % (0-5); HEMATOCRIT 38.4 % (36.0-46.0); HEMOGLOBIN 13.6 G/DL (11.9-15.5); IMMATURE GRANULOCYTE (%) 1.6 % (0.0-0.7); LYMPHOCYTE (%) 10.6 % (15-42); MCH 35.8 PG (29.0-34.0); MCHC 35.4 G/DL (30.0-36.0); MCV 101.1 FL (83-99); MONOCYTE (%) 5.5 % (3-12); MONOCYTE COUNT 0.5 K/uL (0-0.8); NEUTROPHIL (%) 80.9 % (45-76); NEUTROPHIL COUNT 7.5 K/uL (1.8-6.4); NRBC (%) 0.2 /100 WBC (0-0); PLATELET COUNT 356 K/uL (156-360); RBC DIS.WIDTH-CV 14.6 % (11.8-14.6); RBC DIS.WIDTH-SD 54.7 % (39-53); WHITE BLOOD COUNT 9.3 K/uL (4.1-10.2)
[2018-03-11 09:12] LABS: AMPHETAMINE NEGATIVE (500 ng/mL); BARBITURATES NEGATIVE (200 ng/mL); BENZODIAZEPINES PRESUMPTIVE POSITIVE (150 ng/mL); BUPRENORPHINE NEGATIVE (10 ng/mL); COCAINE NEGATIVE (150 ng/mL); METHADONE NEGATIVE (200 ng/mL); METHAMPHETAMINE NEGATIVE (500 ng/mL); OPIATES (MORPHINE) NEGATIVE (100 ng/mL); OXYCODONE NEGATIVE (100 ng/mL); PHENCYCLIDINE NEGATIVE (25 ng/mL); PROPOXYPHENE NEGATIVE (300 ng/mL); THC CANNABINOIDS NEGATIVE (50 ng/mL); TRICYCLIC ANTIDEPRESSANTS NEGATIVE (300 ng/mL)
[2018-03-11 09:13] LABS: CHLORIDE 95 mEq/L (99-109); POTASSIUM 3.3 mEq/L (3.7-5.4); SODIUM 140 mEq/L (136-147)
[2018-03-11 09:15] LABS: GLUCOSE 131 mg/dL (70-99)
[2018-03-11 09:18] LABS: SERUM ETHYL ALCOHOL 268 mg/dL
[2018-03-11 09:19] LABS: CREATININE 0.7 mg/dL (0.6-1.3); GFR ESTIMATE (CALCULATED) > 59 mL/min/
[2018-03-11 09:19] LABS: BACTERIA 3+ /HPF; EPITHELIAL CELLS 1+ /HPF; MUCUS NONE SEEN /LPF; RED BLOOD CELLS 15-20 /HPF (0-5); WHITE BLOOD CELLS TNTC /HPF (0-5)
[2018-03-11 09:20] LABS: UREA NITROGEN (BUN) 7 mg/dL (9-23)
[2018-03-11 09:27] LABS: QUANTITATIVE HCG < 4.0 MIU/ML
[2018-03-11 10:23] LABS: BENZODIAZEPINES, URINE SCREEN POSITIVE (200 ng/mL)
[2018-03-11] MEDS ORDERED: LIBRIUM25 MG PO (16:49)
[2018-03-11] MEDS ORDERED: ZOFRAN ODT4 MG PO (16:49)
[2018-03-11] MEDS ORDERED: BACTRIM,SEPT1 TABLET PO (16:50)
[2018-03-11 17:08] VITALS: BP 164/75
== END 2018-03-11 17:09 | disposition home or self-care (01) ==
LOC: EME 08:38
PROVIDERS: Emergency Medicine
DX: N39.0 Urinary tract infection, site not specified (principal); F32.9 Major depressive disorder, single episode, unspecified; F10.239 Alcohol dependence with withdrawal, unspecified; Y90.8 Blood alcohol level of 240 mg/100 ml or more; J44.9 Chronic obstructive pulmonary disease, unspecified; M79.7 Fibromyalgia; G43.909 Migraine, unspecified, not intractable, without status migrainosus; F31.9 Bipolar disorder, unspecified; F17.200 Nicotine dependence, unspecified, uncomplicated; Z59.0 Homelessness; Z88.8 Allergy status to other drugs, medicaments and biological substances
CPT/HCPCS: 80048; 81003; 84702; 84999; 85025; 90839; 99281; 99285; G0480

== ENCOUNTER 2018-03-21 19:14 | Inpatient (IN) | payer OTHER ==
[~2018-03-21] VITALS: Ht 162.6 cm; Wt 68.0 kg
[~2018-03-21 19:14] MED LIST changes: +LIBRIUM25 MG PO; +ZOFRAN ODT4 MG PO
[2018-03-21 19:51] LABS: BASOPHIL (%) 0.9 % (0-1); BASOPHIL COUNT 0.1 K/uL (0-0.1); EOSINOPHIL (%) 2.2 % (0-5); EOSINOPHIL COUNT 0.1 K/uL (0-0.3); HEMATOCRIT 41.6 % (36.0-46.0); IMMATURE GRANULOCYTE (%) 0.7 % (0.0-0.7); LYMPHOCYTE (%) 18.7 % (15-42); MCH 35.9 PG (29.0-34.0); MCHC 36.1 G/DL (30.0-36.0); MCV 99.5 FL (83-99); MONOCYTE (%) 8.7 % (3-12); MONOCYTE COUNT 0.5 K/uL (0-0.8); NEUTROPHIL (%) 68.8 % (45-76); NEUTROPHIL COUNT 3.8 K/uL (1.8-6.4); NRBC (%) 0.4 /100 WBC (0-0); RBC DIS.WIDTH-CV 13.7 % (11.8-14.6); RBC DIS.WIDTH-SD 49.8 % (39-53); RED BLOOD COUNT 4.18 M/uL (3.80-5.20); WHITE BLOOD COUNT 5.5 K/uL (4.1-10.2)
[2018-03-21 19:57] LABS: CHLORIDE 102 mEq/L (99-109)
[2018-03-21 19:58] LABS: ALBUMIN 2.9 g/dL (3.2-4.8); MAGNESIUM 1.5 mg/dL (1.3-2.7); SODIUM 145 mEq/L (136-147)
[2018-03-21 20:00] LABS: GLUCOSE 99 mg/dL (70-99); TOTAL PROTEIN 6.5 g/dL (6.4-8.3)
[2018-03-21 20:03] LABS: SERUM ETHYL ALCOHOL 338 mg/dL
[2018-03-21 20:04] LABS: ALKALINE PHOSPHATASE 229 IU/L (3-129); CREATININE 0.7 mg/dL (0.6-1.3); GFR ESTIMATE (CALCULATED) > 59 mL/min/
[2018-03-21 20:05] LABS: AST (GOT) 476 IU/L (2-34); UREA NITROGEN (BUN) 6 mg/dL (9-23)
[2018-03-21 20:07] LABS: ALT (GPT) 138 IU/L (3-49); LIPASE 98 U/L (1.0-51.0)
[2018-03-21 20:33] LABS: HEMATOLOGY COMMENT 1 SN; PLAT.SUFFICIENCY DECREASED; PLATELET COUNT 106 K/uL (156-360)
[2018-03-21 22:47] LABS: APPEARANCE TURBID ((CLEAR)); BILIRUBIN NEGATIVE; BLOOD SMALL; COLOR AMBER ((YELLOW)); GLUCOSE (STRIP) NEGATIVE; KETONES NEGATIVE; LEUKOCYTES LARGE; NITRITE NEGATIVE; PROTEIN (STRIP) >=500; SPECIFIC GRAVITY 1.012 (1.000-1.030)
[2018-03-21 23:08] LABS: BACTERIA 3+ /HPF; EPITHELIAL CELLS RARE /HPF; MUCUS NONE SEEN /LPF; RED BLOOD CELLS 0-5 /HPF (0-5); WHITE BLOOD CELLS TNTC /HPF (0-5)
[2018-03-21 23:18] LABS: AMPHETAMINE NEGATIVE (500 ng/mL); BARBITURATES NEGATIVE (200 ng/mL); BENZODIAZEPINES PRESUMPTIVE POSITIVE (150 ng/mL); BUPRENORPHINE NEGATIVE (10 ng/mL); COCAINE NEGATIVE (150 ng/mL); METHADONE NEGATIVE (200 ng/mL); METHAMPHETAMINE NEGATIVE (500 ng/mL); OPIATES (MORPHINE) NEGATIVE (100 ng/mL); OXYCODONE NEGATIVE (100 ng/mL); PHENCYCLIDINE NEGATIVE (25 ng/mL); PROPOXYPHENE NEGATIVE (300 ng/mL); THC CANNABINOIDS NEGATIVE (50 ng/mL); TRICYCLIC ANTIDEPRESSANTS NEGATIVE (300 ng/mL)
[2018-03-22] VITALS (8 sets, daily range): BP systolic 106–137; BP diastolic 57–84
[2018-03-22 01:16] LABS: INTER. NORMALIZED RATIO 1.1
[2018-03-22 01:18] LABS: BENZODIAZEPINES, URINE SCREEN POSITIVE (200 ng/mL)
[2018-03-22 01:19] LABS: PTT 25.4 SEC (25-37)
[2018-03-22 01:27] LABS: PHOSPHORUS 4.1 mg/dL (2.5-4.9)
[2018-03-22 01:29] LABS: CREATINE KINASE 38 IU/L (1-294); TOTAL CK 38 IU/L (1-294)
[2018-03-22 01:35] LABS: CK-MB 2.9 ng/mL (0.0-4.9); CKMB RELATIVE INDEX 7.6 (0.0-3.9)
[2018-03-22 06:36] LABS: LIPASE 117 U/L (1.0-51.0)
[2018-03-22 08:23] LABS: BASOPHIL (%) 0.6 % (0-1); EOSINOPHIL (%) 1.6 % (0-5); EOSINOPHIL COUNT 0.1 K/uL (0-0.3); HEMATOCRIT 37.4 % (36.0-46.0); HEMOGLOBIN 12.8 G/DL (11.9-15.5); IMMATURE GRANULOCYTE (%) 0.6 % (0.0-0.7); LYMPHOCYTE (%) 19.6 % (15-42); MCH 35.3 PG (29.0-34.0); MCHC 34.2 G/DL (30.0-36.0); MONOCYTE (%) 6.9 % (3-12); MONOCYTE COUNT 0.4 K/uL (0-0.8); NEUTROPHIL (%) 70.7 % (45-76); NEUTROPHIL COUNT 3.6 K/uL (1.8-6.4); PLATELET COUNT 96 K/uL (156-360); RBC DIS.WIDTH-CV 14.2 % (11.8-14.6); RED BLOOD COUNT 3.63 M/uL (3.80-5.20)
[2018-03-22 08:34] LABS: ALBUMIN 2.4 G/DL (3.2-4.8); ALKALINE PHOSPHATASE 166 IU/L (3-129); ALT (GPT) 90 IU/L (3-49); AST (GOT) 292 IU/L (2-34); CHLORIDE 97 MEQ/L (99-109); CREATININE 0.5 MG/DL (0.6-1.3); GFR ESTIMATE (CALCULATED) > 59 mL/min/; GLUCOSE 95 mg/dL (70-99); MAGNESIUM 1.2 mg/dl (1.3-2.7); TOTAL BILIRUBIN 1.7 MG/DL (0.0-1.0); TOTAL PROTEIN 4.9 G/DL (6.4-8.3); UREA NITROGEN (BUN) 7 mg/dL (9-23)
[2018-03-22 08:51] LABS: SODIUM 134 MEQ/L (136-147)
[2018-03-23 04:15] VITALS: BP 143/79
[2018-03-23 06:53] LABS: BASOPHIL (%) 0.9 % (0-1); EOSINOPHIL (%) 6.2 % (0-5); EOSINOPHIL COUNT 0.2 K/uL (0-0.3); HEMATOCRIT 33.3 % (36.0-46.0); HEMOGLOBIN 11.4 G/DL (11.9-15.5); IMMATURE GRANULOCYTE (%) 0.6 % (0.0-0.7); LYMPHOCYTE (%) 24.3 % (15-42); LYMPHOCYTE COUNT 0.8 K/uL (1.0-2.8); MCH 35.3 PG (29.0-34.0); MCHC 34.2 G/DL (30.0-36.0); MCV 103.1 FL (83-99); MONOCYTE (%) 7.7 % (3-12); MONOCYTE COUNT 0.3 K/uL (0-0.8); NEUTROPHIL (%) 60.3 % (45-76); NRBC (%) 1.2 /100 WBC (0-0); PLATELET COUNT 68 K/uL (156-360); RBC DIS.WIDTH-CV 13.8 % (11.8-14.6); RBC DIS.WIDTH-SD 52.5 % (39-53); RED BLOOD COUNT 3.23 M/uL (3.80-5.20); WHITE BLOOD COUNT 3.4 K/uL (4.1-10.2)
[2018-03-23 07:15] LABS: ALBUMIN 2.1 G/DL (3.2-4.8); ALKALINE PHOSPHATASE 143 IU/L (3-129); ALT (GPT) 69 IU/L (3-49); AST (GOT) 190 IU/L (2-34); CHLORIDE 106 MEQ/L (99-109); CREATININE 0.4 MG/DL (0.6-1.3); DIRECT BILIRUBIN 0.8 mg/dL (0.0-0.3); GFR ESTIMATE (CALCULATED) > 59 mL/min/; GLUCOSE 126 mg/dL (70-99); POTASSIUM 3.2 MEQ/L (3.7-5.4); SODIUM 140 MEQ/L (136-147); TOTAL BILIRUBIN 1.4 MG/DL (0.0-1.0); TOTAL PROTEIN 4.5 G/DL (6.4-8.3); UREA NITROGEN (BUN) 3 mg/dL (9-23)
[2018-03-23 08:06] LABS: MAGNESIUM 1.7 mg/dl (1.3-2.7)
[2018-03-23 08:19] VITALS: BP 126/76
[2018-03-23 12:25] VITALS: BP 97/59
[2018-03-23 16:02] VITALS: BP 100/59
[2018-03-23 20:00] VITALS: BP 127/82
[2018-03-23 23:43] LABS: APPEARANCE CLEAR ((CLEAR)); BILIRUBIN NEGATIVE; BLOOD SMALL; COLOR YELLOW ((YELLOW)); GLUCOSE (STRIP) NEGATIVE; KETONES NEGATIVE; LEUKOCYTES NEGATIVE; NITRITE NEGATIVE; PROTEIN (STRIP) 30; SPECIFIC GRAVITY 1.008 (1.000-1.030); UROBILINOGEN 0.2 MG/DL (0.2-1.0)
[2018-03-23 23:46] VITALS: BP 117/70
[2018-03-23 23:55] LABS: BACTERIA NONE SEEN /HPF; EPITHELIAL CELLS RARE /HPF; MUCUS TRACE /LPF; RED BLOOD CELLS 0-5 /HPF (0-5); UCUL ADDED? NO; WHITE BLOOD CELLS 0-5 /HPF (0-5)
[2018-03-24 04:01] VITALS: BP 109/57
[2018-03-24 07:03] LABS: BASOPHIL (%) 0.8 % (0-1); EOSINOPHIL (%) 5.6 % (0-5); EOSINOPHIL COUNT 0.2 K/uL (0-0.3); HEMATOCRIT 35.8 % (36.0-46.0); IMMATURE GRANULOCYTE (%) 1.3 % (0.0-0.7); LYMPHOCYTE (%) 23.5 % (15-42); LYMPHOCYTE COUNT 0.9 K/uL (1.0-2.8); MCH 36.3 PG (29.0-34.0); MCHC 33.5 G/DL (30.0-36.0); MONOCYTE (%) 8.1 % (3-12); MONOCYTE COUNT 0.3 K/uL (0-0.8); NEUTROPHIL (%) 60.7 % (45-76); NEUTROPHIL COUNT 2.4 K/uL (1.8-6.4); NRBC (%) 0.8 /100 WBC (0-0); PLATELET COUNT 82 K/uL (156-360); RBC DIS.WIDTH-CV 14.4 % (11.8-14.6); RBC DIS.WIDTH-SD 57.2 % (39-53); RED BLOOD COUNT 3.31 M/uL (3.80-5.20)
[2018-03-24 07:04] LABS: MCV 108.2 FL (83-99)
[2018-03-24 07:22] LABS: ALBUMIN 2.2 G/DL (3.2-4.8); ALKALINE PHOSPHATASE 159 IU/L (3-129); ALT (GPT) 61 IU/L (3-49); AST (GOT) 128 IU/L (2-34); CHLORIDE 109 MEQ/L (99-109); CREATININE 0.5 MG/DL (0.6-1.3); GFR ESTIMATE (CALCULATED) > 59 mL/min/; GLUCOSE 176 mg/dL (70-99); LIPASE 43 U/L (1.0-51.0); SODIUM 136 MEQ/L (136-147); TOTAL BILIRUBIN 1.2 MG/DL (0.0-1.0); TOTAL PROTEIN 4.9 G/DL (6.4-8.3); UREA NITROGEN (BUN) 2 mg/dL (9-23)
[2018-03-24 07:23] LABS: MAGNESIUM 1.3 mg/dl (1.3-2.7); POTASSIUM 4.1 MEQ/L (3.7-5.4)
[2018-03-24 07:46] VITALS: BP 82/50
[2018-03-24 12:01] VITALS: BP 101/56
[2018-03-24 16:08] VITALS: BP 128/79
[2018-03-24 18:11] LABS: HCV RNA (IU/mL) <15 IU/mL (())
[2018-03-24 19:28] VITALS: BP 138/79
[2018-03-24 23:33] VITALS: BP 135/85
[2018-03-25 03:20] VITALS: BP 101/62
[2018-03-25 06:16] LABS: HEMATOCRIT 34.2 % (36.0-46.0); HEMOGLOBIN 11.4 G/DL (11.9-15.5); MCH 36.1 PG (29.0-34.0); MCHC 33.3 G/DL (30.0-36.0); MCV 108.2 FL (83-99); NRBC (%) 0.6 /100 WBC (0-0); PLATELET COUNT 95 K/uL (156-360); RBC DIS.WIDTH-CV 14.6 % (11.8-14.6); RBC DIS.WIDTH-SD 58.5 % (39-53); RED BLOOD COUNT 3.16 M/uL (3.80-5.20); WHITE BLOOD COUNT 3.1 K/uL (4.1-10.2)
[2018-03-25 06:35] LABS: ALKALINE PHOSPHATASE 142 IU/L (3-129); ALT (GPT) 42 IU/L (3-49); AST (GOT) 75 IU/L (2-34); CHLORIDE 109 MEQ/L (99-109); CREATININE 0.4 MG/DL (0.6-1.3); GFR ESTIMATE (CALCULATED) > 59 mL/min/; LIPASE 64 U/L (1.0-51.0); POTASSIUM 4.2 MEQ/L (3.7-5.4); SODIUM 139 MEQ/L (136-147); TOTAL PROTEIN 4.5 G/DL (6.4-8.3); UREA NITROGEN (BUN) 2 mg/dL (9-23)
[2018-03-25 06:36] LABS: GLUCOSE 90 mg/dL (70-99); TOTAL BILIRUBIN 0.8 MG/DL (0.0-1.0)
[2018-03-25 07:33] LABS: HCV RNA (LOG IU/mL) <1.18 (())
[2018-03-25 08:19] VITALS: BP 126/80
[2018-03-25 12:11] VITALS: BP 125/75
[2018-03-25 23:32] VITALS: BP 124/81
[2018-03-26 04:09] VITALS: BP 100/63
[2018-03-26 05:56] LABS: HEMATOCRIT 34.6 % (36.0-46.0); HEMOGLOBIN 11.5 G/DL (11.9-15.5); MCH 35.7 PG (29.0-34.0); MCHC 33.2 G/DL (30.0-36.0); MCV 107.5 FL (83-99); RBC DIS.WIDTH-CV 14.6 % (11.8-14.6); RBC DIS.WIDTH-SD 58.7 % (39-53); RED BLOOD COUNT 3.22 M/uL (3.80-5.20); WHITE BLOOD COUNT 3.5 K/uL (4.1-10.2)
[2018-03-26 06:19] LABS: PLATELET COUNT 126 K/uL (156-360)
[2018-03-26 06:20] LABS: ALKALINE PHOSPHATASE 119 IU/L (3-129); ALT (GPT) 38 IU/L (3-49); AST (GOT) 77 IU/L (2-34); CHLORIDE 103 MEQ/L (99-109); CREATININE 0.4 MG/DL (0.6-1.3); GFR ESTIMATE (CALCULATED) > 59 mL/min/; GLUCOSE 109 mg/dL (70-99); SODIUM 138 MEQ/L (136-147); TOTAL PROTEIN 4.4 G/DL (6.4-8.3); UREA NITROGEN (BUN) 3 mg/dL (9-23)
[2018-03-26 06:21] LABS: DIRECT BILIRUBIN 0.3 mg/dL (0.0-0.3); TOTAL BILIRUBIN 0.6 MG/DL (0.0-1.0)
[2018-03-26 07:21] VITALS: BP 123/72
[2018-03-26] MEDS ORDERED: GABAPENTIN600 MG PO (10:33)
[2018-03-26] MEDS ORDERED: OXYCODONE HCL5 MG PO (10:33)
[2018-03-26 11:11] VITALS: BP 111/63
== END 2018-03-26 12:49 | disposition home or self-care (01) | DRG 689 ==
LOC: EME 19:14 → 3EAST 23:47 → EDOF 23:47 → ENRESERV 23:48 → 3EAST 03-22 01:59 → UNDODEPER 03-22 03:37 → 3EAST 03-26 12:49
PROVIDERS: Emergency Medicine; Hospitalist; Internal Medicine; Internal Medicine Gastroenterology; Physician Assistant
DX: N39.0 Urinary tract infection, site not specified (principal); K85.90 Acute pancreatitis without necrosis or infection, unspecified; R10.13 Epigastric pain; I95.9 Hypotension, unspecified; K70.10 Alcoholic hepatitis without ascites; F10.20 Alcohol dependence, uncomplicated; E87.6 Hypokalemia; K21.9 Gastro-esophageal reflux disease without esophagitis; R47.02 Dysphasia; E87.8 Other disorders of electrolyte and fluid balance, not elsewhere classified; K76.0 Fatty (change of) liver, not elsewhere classified; F17.210 Nicotine dependence, cigarettes, uncomplicated; Y90.8 Blood alcohol level of 240 mg/100 ml or more; F31.9 Bipolar disorder, unspecified; E86.0 Dehydration; R00.0 Tachycardia, unspecified; R74.0 Nonspecific elevation of levels of transaminase and lactic acid dehydrogenase [LDH]; Z88.8 Allergy status to other drugs, medicaments and biological substances
CPT/HCPCS: 71045; 74177; 74220; 80048; 80053; 80076; 81003; 81025; 82140; 82550; 82553; 83605; 83690; 83735; 84100; 84999; 85025; 85027; 85610; 85730; 87086; 87522 90; 99281; 99283; C9113; G0480; J0696; J1644; J2060; J2405; J3010; J3411; J3475; J3480; J7030; J7042; J7050; S0028

== ENCOUNTER 2018-04-04 11:08 | Emergency (ER) | payer OTHER ==
[~2018-04-04] VITALS: Ht 162.6 cm; Wt 61.8 kg
[2018-04-04 11:58] LABS: HEMATOCRIT 41.2 % (36.0-46.0); HEMOGLOBIN 14.3 G/DL (11.9-15.5); MCH 35.8 PG (29.0-34.0); MCHC 34.7 G/DL (30.0-36.0); MCV 103.3 FL (83-99); PLATELET COUNT 294 K/uL (156-360); RBC DIS.WIDTH-CV 14.3 % (11.8-14.6); RED BLOOD COUNT 3.99 M/uL (3.80-5.20); WHITE BLOOD COUNT 3.5 K/uL (4.1-10.2)
[2018-04-04 12:06] LABS: ALBUMIN 3.6 g/dL (3.2-4.8); CHLORIDE 106 mEq/L (99-109); POTASSIUM 3.5 mEq/L (3.7-5.4); SODIUM 145 mEq/L (136-147)
[2018-04-04 12:09] LABS: GLUCOSE 89 mg/dL (70-99); TOTAL PROTEIN 7.3 g/dL (6.4-8.3)
[2018-04-04 12:10] LABS: TOTAL BILIRUBIN 0.7 mg/dL (0.0-1.0)
[2018-04-04 12:12] LABS: ALKALINE PHOSPHATASE 230 IU/L (3-129); SERUM ETHYL ALCOHOL 407 mg/dL
[2018-04-04 12:13] LABS: CREATININE 0.7 mg/dL (0.6-1.3); GFR ESTIMATE (CALCULATED) > 59 mL/min/
[2018-04-04 12:14] LABS: AST (GOT) 231 IU/L (2-34); DIRECT BILIRUBIN 0.6 mg/dL (0.0-0.3); UREA NITROGEN (BUN) 7 mg/dL (9-23)
[2018-04-04 12:15] LABS: APPEARANCE SL.HAZY ((CLEAR)); BILIRUBIN NEGATIVE; BLOOD NEGATIVE; COLOR YELLOW ((YELLOW)); GLUCOSE (STRIP) NEGATIVE; KETONES NEGATIVE; LEUKOCYTES NEGATIVE; NITRITE NEGATIVE; PROTEIN (STRIP) 100; SPECIFIC GRAVITY 1.005 (1.000-1.030); UROBILINOGEN 0.2 MG/DL (0.2-1.0)
[2018-04-04 12:15] LABS: ALT (GPT) 93 IU/L (3-49)
[2018-04-04 12:16] LABS: LIPASE 67 U/L (1.0-51.0)
[2018-04-04 12:22] LABS: BACTERIA RARE /HPF; EPITHELIAL CELLS 2+ /HPF; MUCUS TRACE /LPF; UCUL ADDED? NO; WHITE BLOOD CELLS 0-5 /HPF (0-5)
[2018-04-04 12:22] LABS: QUANTITATIVE HCG < 4.0 MIU/ML
[2018-04-04 12:28] LABS: AMPHETAMINE NEGATIVE (500 ng/mL); BARBITURATES NEGATIVE (200 ng/mL); BENZODIAZEPINES PRESUMPTIVE POSITIVE (150 ng/mL); BUPRENORPHINE NEGATIVE (10 ng/mL); COCAINE NEGATIVE (150 ng/mL); METHADONE NEGATIVE (200 ng/mL); METHAMPHETAMINE NEGATIVE (500 ng/mL); OPIATES (MORPHINE) NEGATIVE (100 ng/mL); OXYCODONE NEGATIVE (100 ng/mL); PHENCYCLIDINE NEGATIVE (25 ng/mL); PROPOXYPHENE NEGATIVE (300 ng/mL); THC CANNABINOIDS NEGATIVE (50 ng/mL); TRICYCLIC ANTIDEPRESSANTS NEGATIVE (300 ng/mL)
[2018-04-04 12:53] LABS: ABS NEUTROPHIL COUNT 1.9; ANISOCYTOSIS 2+; ATYPICAL LYMPHOCYTE 0.9 %; BAND NEUTROPHILS 2.6 % (0-8.0); BASOPHILS 3.5 %; EOSINOPHIL ABS CT 0; EOSINOPHILS 0.9 % (0-5.0); MACROCYTES 2+; MONOCYTES 6.1 % (0-9.0); PLAT.SUFFICIENCY ADEQUATE; TARGET CELLS 1+
[2018-04-04 12:56] LABS: BENZODIAZEPINES, URINE SCREEN POSITIVE (200 ng/mL)
[2018-04-04 16:55] VITALS: BP 116/75
== END 2018-04-04 16:55 | disposition home or self-care (01) ==
LOC: EME 11:08
PROVIDERS: Emergency Medicine
DX: F10.129 Alcohol abuse with intoxication, unspecified (principal); R10.10 Upper abdominal pain, unspecified; R14.0 Abdominal distension (gaseous); R74.8 Abnormal levels of other serum enzymes; Z87.19 Personal history of other diseases of the digestive system; Y90.8 Blood alcohol level of 240 mg/100 ml or more; F17.200 Nicotine dependence, unspecified, uncomplicated
CPT/HCPCS: 80048; 80076; 81003; 83690; 84702; 84999; 85025; 99281; 99285; G0480; J1885; J2060; J7030

== ENCOUNTER 2018-04-07 12:26 | Inpatient (IN) | payer OTHER ==
[~2018-04-07] VITALS: Ht 162.6 cm; Wt 63.0 kg
[2018-04-07 13:42] LABS: BASOPHIL (%) 1.8 % (0-1); BASOPHIL COUNT 0.1 K/uL (0-0.1); EOSINOPHIL (%) 1.6 % (0-5); EOSINOPHIL COUNT 0.1 K/uL (0-0.3); HEMATOCRIT 43.5 % (36.0-46.0); HEMOGLOBIN 15.3 G/DL (11.9-15.5); LYMPHOCYTE (%) 22.7 % (15-42); LYMPHOCYTE COUNT 0.9 K/uL (1.0-2.8); MCH 36.1 PG (29.0-34.0); MCHC 35.2 G/DL (30.0-36.0); MCV 102.6 FL (83-99); MONOCYTE (%) 5.7 % (3-12); MONOCYTE COUNT 0.2 K/uL (0-0.8); NEUTROPHIL (%) 67.2 % (45-76); NEUTROPHIL COUNT 2.6 K/uL (1.8-6.4); RBC DIS.WIDTH-SD 53.5 % (39-53); RED BLOOD COUNT 4.24 M/uL (3.80-5.20); WHITE BLOOD COUNT 3.8 K/uL (4.1-10.2)
[2018-04-07 13:49] LABS: ALBUMIN 3.6 g/dL (3.2-4.8); CHLORIDE 102 mEq/L (99-109); POTASSIUM 3.7 mEq/L (3.7-5.4); SODIUM 143 mEq/L (136-147)
[2018-04-07 13:50] LABS: MAGNESIUM 1.5 mg/dL (1.3-2.7)
[2018-04-07 13:52] LABS: GLUCOSE 93 mg/dL (70-99); TOTAL PROTEIN 7.2 g/dL (6.4-8.3)
[2018-04-07 13:55] LABS: ALKALINE PHOSPHATASE 255 IU/L (3-129); SERUM ETHYL ALCOHOL 401 mg/dL; TOTAL BILIRUBIN 0.9 mg/dL (0.0-1.0)
[2018-04-07 13:56] LABS: CREATININE 0.7 mg/dL (0.6-1.3); GFR ESTIMATE (CALCULATED) > 59 mL/min/
[2018-04-07 13:57] LABS: AST (GOT) 249 IU/L (2-34); UREA NITROGEN (BUN) 5 mg/dL (9-23)
[2018-04-07 13:58] LABS: ALT (GPT) 75 IU/L (3-49)
[2018-04-07 13:59] LABS: LIPASE 83 U/L (1.0-51.0)
[2018-04-07 14:51] LABS: PLAT.SUFFICIENCY ADEQUATE
[2018-04-07 16:01] LABS: PLATELET COUNT 150 K/uL (156-360)
[2018-04-07 18:17] LABS: APPEARANCE SL.HAZY ((CLEAR)); BILIRUBIN NEGATIVE; BLOOD SMALL; COLOR YELLOW ((YELLOW)); GLUCOSE (STRIP) NEGATIVE; KETONES NEGATIVE; LEUKOCYTES TRACE; NITRITE POSITIVE; PROTEIN (STRIP) 100
[2018-04-07 18:28] LABS: BACTERIA 3+ /HPF; EPITHELIAL CELLS 1+ /HPF; HYALINE CASTS 0-5 /LPF; MUCUS 2+ /LPF
[2018-04-07 18:41] LABS: AMPHETAMINE NEGATIVE (500 ng/mL); BENZODIAZEPINES PRESUMPTIVE POSITIVE (150 ng/mL); COCAINE NEGATIVE (150 ng/mL); METHADONE NEGATIVE (200 ng/mL); METHAMPHETAMINE NEGATIVE (500 ng/mL); OPIATES (MORPHINE) NEGATIVE (100 ng/mL); PHENCYCLIDINE NEGATIVE (25 ng/mL); THC CANNABINOIDS NEGATIVE (50 ng/mL); TRICYCLIC ANTIDEPRESSANTS NEGATIVE (300 ng/mL)
[2018-04-07 18:42] LABS: BARBITURATES NEGATIVE (200 ng/mL); BUPRENORPHINE NEGATIVE (10 ng/mL); OXYCODONE NEGATIVE (100 ng/mL); PROPOXYPHENE NEGATIVE (300 ng/mL)
[2018-04-07 19:17] LABS: BENZODIAZEPINES, URINE SCREEN POSITIVE (200 ng/mL)
[2018-04-08 05:11] VITALS: BP 133/75
[2018-04-08 07:21] VITALS: BP 131/62
[2018-04-08 11:07] VITALS: BP 135/89
[2018-04-08] MEDS ORDERED: PRAZOSIN HCL1 MG PO (12:08)
[2018-04-08] MEDS ORDERED: ASPERCREME 1035.4 GM TP (12:10)
[2018-04-08 15:18] VITALS: BP 158/74
[2018-04-08 19:14] VITALS: BP 112/78
[2018-04-09 00:53] VITALS: BP 109/77
[2018-04-09 06:33] LABS: BASOPHIL (%) 1.1 % (0-1); EOSINOPHIL (%) 3.4 % (0-5); EOSINOPHIL COUNT 0.1 K/uL (0-0.3); HEMATOCRIT 32.4 % (36.0-46.0); IMMATURE GRANULOCYTE (%) 1.1 % (0.0-0.7); LYMPHOCYTE COUNT 1.2 K/uL (1.0-2.8); MCH 35.8 PG (29.0-34.0); MCHC 34.6 G/DL (30.0-36.0); MCV 103.5 FL (83-99); MONOCYTE COUNT 0.2 K/uL (0-0.8); NEUTROPHIL (%) 59.4 % (45-76); NEUTROPHIL COUNT 2.2 K/uL (1.8-6.4); NRBC (%) 1.1 /100 WBC (0-0); RBC DIS.WIDTH-CV 13.7 % (11.8-14.6); RBC DIS.WIDTH-SD 52.5 % (39-53); WHITE BLOOD COUNT 3.8 K/uL (4.1-10.2)
[2018-04-09 06:49] LABS: ALBUMIN 2.4 G/DL (3.2-4.8); ALKALINE PHOSPHATASE 149 IU/L (3-129); ALT (GPT) 35 IU/L (3-49); AST (GOT) 111 IU/L (2-34); CHLORIDE 104 MEQ/L (99-109); CREATININE 0.5 MG/DL (0.6-1.3); GFR ESTIMATE (CALCULATED) > 59 mL/min/; GLUCOSE 105 mg/dL (70-99); SODIUM 140 MEQ/L (136-147); TOTAL BILIRUBIN 0.9 MG/DL (0.0-1.0); TOTAL PROTEIN 4.8 G/DL (6.4-8.3); UREA NITROGEN (BUN) 3 mg/dL (9-23)
[2018-04-09 06:51] LABS: POTASSIUM 2.8 MEQ/L (3.7-5.4)
[2018-04-09 07:10] LABS: HEMOGLOBIN 11.2 G/DL (11.9-15.5); RED BLOOD COUNT 3.13 M/uL (3.80-5.20)
[2018-04-09 07:16] LABS: PLAT.SUFFICIENCY DECREASED
[2018-04-09 07:23] LABS: PLATELET COUNT 66 K/uL (156-360)
[2018-04-09 08:10] VITALS: BP 110/65
[2018-04-09 10:36] VITALS: BP 133/90
[2018-04-09 15:59] VITALS: BP 118/74
[2018-04-09 20:25] VITALS: BP 141/90
[2018-04-10 00:46] VITALS: BP 124/83
[2018-04-10 04:54] VITALS: BP 102/56
[2018-04-10 06:16] LABS: ALBUMIN 2.3 G/DL (3.2-4.8); ALKALINE PHOSPHATASE 128 IU/L (3-129); ALT (GPT) 35 IU/L (3-49); AST (GOT) 106 IU/L (2-34); CHLORIDE 105 MEQ/L (99-109); CREATININE 0.4 MG/DL (0.6-1.3); GFR ESTIMATE (CALCULATED) > 59 mL/min/; GLUCOSE 120 mg/dL (70-99); SODIUM 141 MEQ/L (136-147); TOTAL PROTEIN 4.8 G/DL (6.4-8.3); UREA NITROGEN (BUN) 4 mg/dL (9-23)
[2018-04-10 06:17] LABS: POTASSIUM 3.6 MEQ/L (3.7-5.4); TOTAL BILIRUBIN 0.6 MG/DL (0.0-1.0)
[2018-04-10 07:22] VITALS: BP 111/77
[2018-04-10 10:39] VITALS: BP 00/00
[2018-04-10] MEDS ORDERED: REQUIP0.25 MG PO (12:14)
[2018-04-10] MEDS ORDERED: FOLIC ACID1 MG PO (12:14)
[2018-04-10] MEDS ORDERED: NICOTINE PATCH1 EAC1 TD (12:14)
[2018-04-10] MEDS ORDERED: MIRTAZAPINE30 MG PO (12:14)
[2018-04-10] MEDS ORDERED: GABAPENTIN600 MG PO (12:14)
[2018-04-10] MEDS ORDERED: CHLORDIAZEPOXID25 MG PO (12:14)
[2018-04-10] MEDS ORDERED: BENTYL20 MG PO (12:14)
[2018-04-10] MEDS ORDERED: Thiamine,Vitamin B1 PO (12:14)
[2018-04-10] MEDS ORDERED: OXCARBAZEPINE300 MG PO (12:14)
[2018-04-10] MEDS ORDERED: OXYCODONE HCL5 MG PO (12:15)
== END 2018-04-10 14:01 | disposition home or self-care (01) | DRG 439 ==
LOC: EME 12:26 → EDOF 04-08 04:00 → 5SOUTH 04-08 04:00 → ENRESERV 04-08 04:01 → 5SOUTH 04-08 04:49
PROVIDERS: Emergency Medicine; Internal Medicine
PROC: HZ2ZZZZ Detoxification Services for Substance Abuse Treatment (ICD-10-PCS; principal; 2018-04-08)
DX: K85.90 Acute pancreatitis without necrosis or infection, unspecified (principal); F10.231 Alcohol dependence with withdrawal delirium; Y90.8 Blood alcohol level of 240 mg/100 ml or more; D69.6 Thrombocytopenia, unspecified; E87.6 Hypokalemia; K86.1 Other chronic pancreatitis; R45.851 Suicidal ideations; N30.00 Acute cystitis without hematuria; K74.60 Unspecified cirrhosis of liver; Z91.14 Patient's other noncompliance with medication regimen; B19.20 Unspecified viral hepatitis C without hepatic coma; F31.9 Bipolar disorder, unspecified; F60.3 Borderline personality disorder; M79.7 Fibromyalgia; G43.909 Migraine, unspecified, not intractable, without status migrainosus; F17.210 Nicotine dependence, cigarettes, uncomplicated
CPT/HCPCS: 74177; 80053; 81003; 81025; 82140; 83690; 83735; 84999; 85025; 87086; 90839; 99281; 99285; C9113; G0480; J0696; J1644; J2060; J2405; J3010; J3411; J7030; J7042; J7120; S0028

== ENCOUNTER 2018-04-23 21:10 | Inpatient (IN) | payer OTHER ==
[~2018-04-23] VITALS: Ht 162.6 cm; Wt 58.0 kg
[~2018-04-23 21:10] MED LIST changes: +ASPERCREME 1035.4 GM TP; +NICOTINE PATCH1 EAC1 TD
[2018-04-23 22:03] LABS: ALBUMIN 3.5 g/dL (3.2-4.8); CHLORIDE 103 mEq/L (99-109); POTASSIUM 3.3 mEq/L (3.7-5.4); SODIUM 144 mEq/L (136-147)
[2018-04-23 22:05] LABS: AMPHETAMINE NEGATIVE (500 ng/mL); BARBITURATES NEGATIVE (200 ng/mL); BENZODIAZEPINES PRESUMPTIVE POSITIVE (150 ng/mL); BUPRENORPHINE NEGATIVE (10 ng/mL); COCAINE NEGATIVE (150 ng/mL); METHADONE NEGATIVE (200 ng/mL); METHAMPHETAMINE NEGATIVE (500 ng/mL); OPIATES (MORPHINE) NEGATIVE (100 ng/mL); OXYCODONE NEGATIVE (100 ng/mL); PHENCYCLIDINE NEGATIVE (25 ng/mL); PROPOXYPHENE NEGATIVE (300 ng/mL); THC CANNABINOIDS NEGATIVE (50 ng/mL); TRICYCLIC ANTIDEPRESSANTS NEGATIVE (300 ng/mL)
[2018-04-23 22:05] LABS: GLUCOSE 116 mg/dL (70-99)
[2018-04-23 22:06] LABS: TOTAL PROTEIN 7.3 g/dL (6.4-8.3)
[2018-04-23 22:08] LABS: HEMATOCRIT 42.9 % (36.0-46.0); HEMOGLOBIN 15.3 G/DL (11.9-15.5); MCH 36.4 PG (29.0-34.0); MCHC 35.7 G/DL (30.0-36.0); MCV 102.1 FL (83-99); NRBC (%) 0.6 /100 WBC (0-0); PLATELET COUNT 170 K/uL (156-360); RBC DIS.WIDTH-CV 13.2 % (11.8-14.6); RBC DIS.WIDTH-SD 49.6 % (39-53); SERUM ETHYL ALCOHOL 374 mg/dL; WHITE BLOOD COUNT 4.9 K/uL (4.1-10.2)
[2018-04-23 22:09] LABS: ALKALINE PHOSPHATASE 291 IU/L (3-129); CREATININE 0.7 mg/dL (0.6-1.3); GFR ESTIMATE (CALCULATED) > 59 mL/min/
[2018-04-23 22:10] LABS: UREA NITROGEN (BUN) 5 mg/dL (9-23)
[2018-04-23 22:11] LABS: AST (GOT) 411 IU/L (2-34)
[2018-04-23 22:12] LABS: ALT (GPT) 86 IU/L (3-49)
[2018-04-23 22:19] LABS: QUANTITATIVE HCG < 4.0 MIU/ML
[2018-04-23 22:43] LABS: BENZODIAZEPINES, URINE SCREEN POSITIVE (200 ng/mL)
[2018-04-24 07:32] LABS: APPEARANCE CLOUDY ((CLEAR)); BILIRUBIN NEGATIVE; BLOOD NEGATIVE; COLOR AMBER ((YELLOW)); GLUCOSE (STRIP) NEGATIVE; KETONES NEGATIVE; LEUKOCYTES NEGATIVE; NITRITE NEGATIVE; PROTEIN (STRIP) >=500
[2018-04-24 07:57] LABS: EPITHELIAL CELLS 4+ /HPF; MUCUS TRACE /LPF
[2018-04-24 07:58] LABS: BACTERIA 4+ /HPF; RED BLOOD CELLS NONE SEEN /HPF (0-5); UCUL ADDED? YES; WHITE BLOOD CELLS 0-5 /HPF (0-5)
[2018-04-24] MEDS ORDERED: NICOTINE LOZENGE2 MG BC (10:29)
[2018-04-24] MEDS ORDERED: LOVASTATIN20 MG PO (10:29)
[2018-04-24] MEDS ORDERED: TRILEPTAL150 MG PO (10:30)
[2018-04-24] MEDS ORDERED: TRAZODONE HCL50 MG PO (10:30)
[2018-04-24] MEDS ORDERED: REMERON15 M2 PO (10:32)
[2018-04-24] MEDS ORDERED: OXAYDO5 MG PO (10:32)
[2018-04-24] MEDS ORDERED: ATARAX,VISTARIL25 MG PO (10:33)
[2018-04-24] MEDS ORDERED: CELEXA10 MG PO (10:33)
[2018-04-24] MEDS ORDERED: SOMA350 MG PO (10:33)
[2018-04-24] MEDS ORDERED: IBU800 MG PO (10:34)
[2018-04-24] MEDS ORDERED: NEURONTIN400 MG PO (10:38)
[2018-04-24 10:45] VITALS: BP 141/73
[2018-04-24 15:42] LABS: PHOSPHORUS 2.7 mg/dL (2.5-4.9)
[2018-04-24 19:16] VITALS: BP 150/77
[2018-04-24 22:37] VITALS: BP 170/98
[2018-04-24 23:42] VITALS: BP 140/80
[2018-04-25 02:26] VITALS: BP 132/84
[2018-04-25 07:08] LABS: HEMATOCRIT 37.2 % (36.0-46.0); MCH 35.5 PG (29.0-34.0); MCHC 34.1 G/DL (30.0-36.0); MCV 103.9 FL (83-99); NRBC (%) 1.3 /100 WBC (0-0); RBC DIS.WIDTH-CV 13.2 % (11.8-14.6); RBC DIS.WIDTH-SD 51.3 % (39-53); RED BLOOD COUNT 3.58 M/uL (3.80-5.20); WHITE BLOOD COUNT 3.8 K/uL (4.1-10.2)
[2018-04-25 07:09] LABS: HEMOGLOBIN 12.7 G/DL (11.9-15.5)
[2018-04-25 07:22] LABS: ALBUMIN 2.7 G/DL (3.2-4.8); ALKALINE PHOSPHATASE 200 IU/L (3-129); ALT (GPT) 43 IU/L (3-49); AST (GOT) 183 IU/L (2-34); CHLORIDE 99 MEQ/L (99-109); CREATININE 0.4 MG/DL (0.6-1.3); DIRECT BILIRUBIN 1.2 mg/dL (0.0-0.3); GFR ESTIMATE (CALCULATED) > 59 mL/min/; MAGNESIUM 1.2 mg/dl (1.3-2.7); POTASSIUM 3.3 MEQ/L (3.7-5.4); SODIUM 139 MEQ/L (136-147); TOTAL BILIRUBIN 2.1 MG/DL (0.0-1.0); TOTAL PROTEIN 5.4 G/DL (6.4-8.3); UREA NITROGEN (BUN) 6 mg/dL (9-23)
[2018-04-25 07:26] LABS: GLUCOSE 86 mg/dL (70-99)
[2018-04-25 07:31] LABS: PLATELET CLUMPS PRESENT - PLATELET COUNTS APPEARS DECREASED
[2018-04-25 07:37] LABS: PLATELET COUNT UNABLE TO REPORT K/uL (156-360)
[2018-04-25 07:55] VITALS: BP 126/78
[2018-04-25 11:20] VITALS: BP 124/80
[2018-04-25 15:20] VITALS: BP 136/84
[2018-04-25 19:34] VITALS: BP 120/70
[2018-04-25 23:03] VITALS: BP 134/91
[2018-04-26 06:41] VITALS: BP 102/57
[2018-04-26 07:08] LABS: BASOPHIL (%) 0.2 % (0-1); EOSINOPHIL (%) 4.8 % (0-5); EOSINOPHIL COUNT 0.2 K/uL (0-0.3); HEMATOCRIT 33.2 % (36.0-46.0); HEMOGLOBIN 11.1 G/DL (11.9-15.5); IMMATURE GRANULOCYTE (%) 1.7 % (0.0-0.7); LYMPHOCYTE (%) 19.7 % (15-42); MCH 35.4 PG (29.0-34.0); MCHC 33.4 G/DL (30.0-36.0); MCV 105.7 FL (83-99); MONOCYTE (%) 3.5 % (3-12); MONOCYTE COUNT 0.2 K/uL (0-0.8); NEUTROPHIL (%) 70.1 % (45-76); NEUTROPHIL COUNT 3.4 K/uL (1.8-6.4); NRBC (%) 0.4 /100 WBC (0-0); PLATELET COUNT 77 K/uL (156-360); RBC DIS.WIDTH-CV 13.2 % (11.8-14.6); RBC DIS.WIDTH-SD 51.6 % (39-53); RED BLOOD COUNT 3.14 M/uL (3.80-5.20); WHITE BLOOD COUNT 4.8 K/uL (4.1-10.2)
[2018-04-26 07:32] LABS: ALBUMIN 2.3 G/DL (3.2-4.8); ALKALINE PHOSPHATASE 158 IU/L (3-129); ALT (GPT) 29 IU/L (3-49); AST (GOT) 93 IU/L (2-34); CHLORIDE 106 MEQ/L (99-109); CREATININE 0.4 MG/DL (0.6-1.3); GFR ESTIMATE (CALCULATED) > 59 mL/min/; GLUCOSE 116 mg/dL (70-99); POTASSIUM 3.3 MEQ/L (3.7-5.4); SODIUM 140 MEQ/L (136-147); TOTAL BILIRUBIN 2.2 MG/DL (0.0-1.0); TOTAL PROTEIN 4.4 G/DL (6.4-8.3); UREA NITROGEN (BUN) 3 mg/dL (9-23)
[2018-04-26 08:02] LABS: MAGNESIUM 1.3 mg/dl (1.3-2.7)
[2018-04-26 12:42] VITALS: BP 114/56
[2018-04-26 15:26] VITALS: BP 115/71
[2018-04-27 00:49] VITALS: BP 130/85
[2018-04-27 06:18] LABS: BASOPHIL (%) 0.5 % (0-1); EOSINOPHIL (%) 4.3 % (0-5); EOSINOPHIL COUNT 0.2 K/uL (0-0.3); HEMATOCRIT 35.1 % (36.0-46.0); HEMOGLOBIN 11.4 G/DL (11.9-15.5); IMMATURE GRANULOCYTE (%) 1.5 % (0.0-0.7); LYMPHOCYTE (%) 23.9 % (15-42); MCHC 32.5 G/DL (30.0-36.0); MCV 107.7 FL (83-99); MONOCYTE (%) 4.5 % (3-12); MONOCYTE COUNT 0.2 K/uL (0-0.8); NEUTROPHIL (%) 65.3 % (45-76); NEUTROPHIL COUNT 2.6 K/uL (1.8-6.4); NRBC (%) 0.8 /100 WBC (0-0); PLATELET COUNT 82 K/uL (156-360); RBC DIS.WIDTH-CV 13.3 % (11.8-14.6); RBC DIS.WIDTH-SD 53.6 % (39-53); RED BLOOD COUNT 3.26 M/uL (3.80-5.20)
[2018-04-27 06:45] LABS: CHLORIDE 106 MEQ/L (99-109); CREATININE 0.3 MG/DL (0.6-1.3); GFR ESTIMATE (CALCULATED) > 59 mL/min/; GLUCOSE 96 mg/dL (70-99); POTASSIUM 3.7 MEQ/L (3.7-5.4); SODIUM 140 MEQ/L (136-147); UREA NITROGEN (BUN) 2 mg/dL (9-23)
[2018-04-27 07:30] VITALS: BP 124/79
[2018-04-27 07:52] LABS: MAGNESIUM 1.1 mg/dl (1.3-2.7)
[2018-04-27 11:34] VITALS: BP 120/60
[2018-04-27 14:41] LABS: Heparin Induced Plt Ab Negative (Negative)
[2018-04-27 15:10] LABS: UFH SRA Result Negative (Negative)
[2018-04-27 16:05] VITALS: BP 130/80
[2018-04-27 23:35] VITALS: BP 131/87
[2018-04-28 05:47] LABS: HEMATOCRIT 33.9 % (36.0-46.0); HEMOGLOBIN 11.1 G/DL (11.9-15.5); MCH 35.1 PG (29.0-34.0); MCHC 32.7 G/DL (30.0-36.0); MCV 107.3 FL (83-99); PLATELET COUNT 95 K/uL (156-360); RBC DIS.WIDTH-CV 13.3 % (11.8-14.6); RBC DIS.WIDTH-SD 53.1 % (39-53); RED BLOOD COUNT 3.16 M/uL (3.80-5.20); WHITE BLOOD COUNT 3.8 K/uL (4.1-10.2)
[2018-04-28 06:21] LABS: ALBUMIN 2.4 G/DL (3.2-4.8); ALKALINE PHOSPHATASE 140 IU/L (3-129); ALT (GPT) 28 IU/L (3-49); AST (GOT) 88 IU/L (2-34); CHLORIDE 104 MEQ/L (99-109); CREATININE 0.3 MG/DL (0.6-1.3); GFR ESTIMATE (CALCULATED) > 59 mL/min/; GLUCOSE 107 mg/dL (70-99); POTASSIUM 3.5 MEQ/L (3.7-5.4); SODIUM 139 MEQ/L (136-147); TOTAL PROTEIN 4.5 G/DL (6.4-8.3); UREA NITROGEN (BUN) 3 mg/dL (9-23)
[2018-04-28 06:22] LABS: TOTAL BILIRUBIN 0.7 MG/DL (0.0-1.0)
[2018-04-28 07:15] VITALS: BP 115/72
[2018-04-28 07:55] LABS: MAGNESIUM 1.6 mg/dl (1.3-2.7)
[2018-04-28] MEDS ORDERED: FOLIC ACID1 MG PO (10:10)
[2018-04-28] MEDS ORDERED: Thiamine,Vitamin B1 PO (10:10)
[2018-04-28] MEDS ORDERED: THERAGRAN1 TABLET PO (10:11)
[2018-04-28] MEDS ORDERED: NICOTINE PATCH1 EAC2 TD (10:11)
[2018-04-28] MEDS ORDERED: MAG-OXIDE400 MG PO (10:15)
[2018-04-28] MEDS ORDERED: AMOXICILLIN500 MG PO (10:15)
[2018-04-28] MEDS ORDERED: LORAZEPAM2 MG PO (16:38)
== END 2018-04-28 15:05 | DRG 439 ==
LOC: EME 21:10 → EDOF 04-24 09:49 → 5EAST 04-24 09:49 → ENRESERV 04-24 09:50 → 5EAST 04-24 10:44
PROVIDERS: Emergency Medicine; Hospitalist; Internal Medicine; Physician Assistant
DX: K85.20 Alcohol induced acute pancreatitis without necrosis or infection (principal); N39.0 Urinary tract infection, site not specified; B95.2 Enterococcus as the cause of diseases classified elsewhere; E83.42 Hypomagnesemia; E87.6 Hypokalemia; F10.239 Alcohol dependence with withdrawal, unspecified; D69.6 Thrombocytopenia, unspecified; F33.9 Major depressive disorder, recurrent, unspecified; R45.851 Suicidal ideations; M79.7 Fibromyalgia; G43.909 Migraine, unspecified, not intractable, without status migrainosus; J44.9 Chronic obstructive pulmonary disease, unspecified; B18.2 Chronic viral hepatitis C; G25.81 Restless legs syndrome; G47.00 Insomnia, unspecified; F17.200 Nicotine dependence, unspecified, uncomplicated; Z59.0 Homelessness; Z86.73 Personal history of transient ischemic attack (TIA), and cerebral infarction without residual deficits; R44.1 Visual hallucinations
CPT/HCPCS: 80048; 80053; 80076; 81003; 82948; 83690; 83735; 84100; 84702; 84999; 85025; 85027; 85049; 86022 90; 87077; 87086; 87186; 90839; 99281; 99285; G0480; J0290; J1170; J1644; J2060; J2405; J3411; J3475; J3480; J3486; J7030; J7050; Q0177; S0028

== ENCOUNTER 2018-04-28 14:15 | Inpatient (IN) | payer OTHER ==
[~2018-04-28 14:15] MED LIST changes: +AMOXICILLIN500 MG PO; +CELEXA10 MG PO; +IBU800 MG PO; +LOVASTATIN20 MG PO; +MAG-OXIDE400 MG PO; +NICOTINE LOZENGE2 MG BC; +OXAYDO5 MG PO; +SOMA350 MG PO; +THERAGRAN1 TABLET PO; +TRILEPTAL150 MG PO
[2018-04-28 15:41] VITALS: BP 141/82
[2018-04-28] MEDS ORDERED: LORAZEPAM2 MG PO (16:38)
[2018-04-29 07:32] VITALS: BP 124/74
== END 2018-04-29 11:27 | disposition home or self-care (01) | DRG 896 ==
LOC: 1WEST 14:15
DX: F10.20 Alcohol dependence, uncomplicated (principal); K85.20 Alcohol induced acute pancreatitis without necrosis or infection; R45.851 Suicidal ideations; F17.210 Nicotine dependence, cigarettes, uncomplicated; B18.2 Chronic viral hepatitis C; Z91.19 Patient's noncompliance with other medical treatment and regimen; K85.90 Acute pancreatitis without necrosis or infection, unspecified; F19.10 Other psychoactive substance abuse, uncomplicated
CPT/HCPCS: 97165 GO; Q0177

== ENCOUNTER 2018-05-14 11:37 | Emergency (ER) | payer OTHER ==
[~2018-05-14] VITALS: Ht 162.6 cm; Wt 58.3 kg
[~2018-05-14 11:37] MED LIST changes: +LORAZEPAM2 MG PO
[2018-05-14 12:11] LABS: HEMATOCRIT 43.2 % (36.0-46.0); MCH 36.3 PG (29.0-34.0); MCHC 35.6 G/DL (30.0-36.0); NRBC (%) 0.4 /100 WBC (0-0); PLATELET COUNT 118 K/uL (156-360); RBC DIS.WIDTH-CV 13.2 % (11.8-14.6); RBC DIS.WIDTH-SD 49.3 % (39-53); WHITE BLOOD COUNT 4.6 K/uL (4.1-10.2)
[2018-05-14 12:12] LABS: ALBUMIN 3.5 g/dL (3.2-4.8)
[2018-05-14 12:13] LABS: CHLORIDE 98 mEq/L (99-109); POTASSIUM 4.1 mEq/L (3.7-5.4); SODIUM 143 mEq/L (136-147)
[2018-05-14 12:15] LABS: GLUCOSE 85 mg/dL (70-99); TOTAL PROTEIN 7.3 g/dL (6.4-8.3)
[2018-05-14 12:16] LABS: HEMOGLOBIN 15.4 G/DL (11.9-15.5); MCV 101.9 FL (83-99); RED BLOOD COUNT 4.24 M/uL (3.80-5.20)
[2018-05-14 12:17] LABS: TOTAL BILIRUBIN 0.9 mg/dL (0.0-1.0)
[2018-05-14 12:18] LABS: SERUM ETHYL ALCOHOL 427 mg/dL
[2018-05-14 12:19] LABS: ALKALINE PHOSPHATASE 329 IU/L (3-129); CREATININE 0.6 mg/dL (0.6-1.3); GFR ESTIMATE (CALCULATED) > 59 mL/min/
[2018-05-14 12:20] LABS: AST (GOT) 330 IU/L (2-34); DIRECT BILIRUBIN 0.7 mg/dL (0.0-0.3); UREA NITROGEN (BUN) 8 mg/dL (9-23)
[2018-05-14 12:22] LABS: ALT (GPT) 68 IU/L (3-49); LIPASE 87 U/L (1.0-51.0)
[2018-05-14 12:28] LABS: QUANTITATIVE HCG < 4.0 MIU/ML
[2018-05-14 17:13] LABS: AMPHETAMINE NEGATIVE (500 ng/mL); BARBITURATES NEGATIVE (200 ng/mL); BENZODIAZEPINES PRESUMPTIVE POSITIVE (150 ng/mL); BUPRENORPHINE NEGATIVE (10 ng/mL); COCAINE NEGATIVE (150 ng/mL); METHADONE NEGATIVE (200 ng/mL); METHAMPHETAMINE NEGATIVE (500 ng/mL); OPIATES (MORPHINE) NEGATIVE (100 ng/mL); OXYCODONE NEGATIVE (100 ng/mL); PHENCYCLIDINE NEGATIVE (25 ng/mL); PROPOXYPHENE NEGATIVE (300 ng/mL); THC CANNABINOIDS NEGATIVE (50 ng/mL); TRICYCLIC ANTIDEPRESSANTS NEGATIVE (300 ng/mL)
[2018-05-14 17:44] LABS: BENZODIAZEPINES, URINE SCREEN POSITIVE (200 ng/mL)
[2018-05-14 18:41] VITALS: BP 122/73
== END 2018-05-14 18:43 | disposition home or self-care (01) ==
LOC: EME 11:37
PROVIDERS: Emergency Medicine
DX: F10.129 Alcohol abuse with intoxication, unspecified (principal); Y90.8 Blood alcohol level of 240 mg/100 ml or more; K85.90 Acute pancreatitis without necrosis or infection, unspecified; K21.9 Gastro-esophageal reflux disease without esophagitis; J44.9 Chronic obstructive pulmonary disease, unspecified; R56.9 Unspecified convulsions; F32.9 Major depressive disorder, single episode, unspecified; F31.9 Bipolar disorder, unspecified; F17.200 Nicotine dependence, unspecified, uncomplicated; Z86.73 Personal history of transient ischemic attack (TIA), and cerebral infarction without residual deficits
CPT/HCPCS: 74177; 80048; 80076; 83690; 84702; 84999; 85027; G0480; J1200; J2060; J7030

== ENCOUNTER 2018-05-19 19:11 | Inpatient (IN) | payer OTHER ==
[~2018-05-19] VITALS: Ht 162.6 cm; Wt 61.1 kg
[2018-05-19 20:02] LABS: APPEARANCE CLOUDY ((CLEAR)); BILIRUBIN NEGATIVE; BLOOD LARGE; COLOR AMBER ((YELLOW)); GLUCOSE (STRIP) NEGATIVE; KETONES NEGATIVE; LEUKOCYTES LARGE; NITRITE POSITIVE; PROTEIN (STRIP) >=500; SPECIFIC GRAVITY 1.011 (1.000-1.030)
[2018-05-19 20:08] LABS: HEMATOCRIT 41.6 % (36.0-46.0); HEMOGLOBIN 15.3 G/DL (11.9-15.5); MCH 36.2 PG (29.0-34.0); MCHC 36.8 G/DL (30.0-36.0); MCV 98.3 FL (83-99); NRBC (%) 0.7 /100 WBC (0-0); RBC DIS.WIDTH-CV 12.7 % (11.8-14.6); RBC DIS.WIDTH-SD 45.8 % (39-53); RED BLOOD COUNT 4.23 M/uL (3.80-5.20); WHITE BLOOD COUNT 5.9 K/uL (4.1-10.2)
[2018-05-19 20:16] LABS: ALBUMIN 3.6 g/dL (3.2-4.8)
[2018-05-19 20:17] LABS: CHLORIDE 92 mEq/L (99-109); POTASSIUM 3.3 mEq/L (3.7-5.4); SODIUM 139 mEq/L (136-147)
[2018-05-19 20:19] LABS: GLUCOSE 109 mg/dL (70-99); TOTAL PROTEIN 7.5 g/dL (6.4-8.3)
[2018-05-19 20:20] LABS: EPITHELIAL CELLS 2+ /HPF; MUCUS 1+ /LPF; RED BLOOD CELLS TNTC /HPF (0-5); WHITE BLOOD CELLS TNTC /HPF (0-5)
[2018-05-19 20:21] LABS: BACTERIA 3+ /HPF; UCUL ADDED? YES
[2018-05-19 20:22] LABS: ALKALINE PHOSPHATASE 325 IU/L (3-129)
[2018-05-19 20:23] LABS: CREATININE 0.7 mg/dL (0.6-1.3); GFR ESTIMATE (CALCULATED) > 59 mL/min/
[2018-05-19 20:24] LABS: AST (GOT) 351 IU/L (2-34); UREA NITROGEN (BUN) 8 mg/dL (9-23)
[2018-05-19 20:25] LABS: ALT (GPT) 71 IU/L (3-49)
[2018-05-19 20:26] LABS: LIPASE 106 U/L (1.0-51.0)
[2018-05-19 20:33] LABS: QUANTITATIVE HCG < 4.0 MIU/ML
[2018-05-19 20:58] LABS: HEMATOLOGY COMMENT 1 SN; PLAT.SUFFICIENCY DECREASED; PLATELET COUNT 58 K/uL (156-360)
[2018-05-19 21:08] LABS: SERUM ETHYL ALCOHOL 403 mg/dL
[2018-05-19 21:13] LABS: AMPHETAMINE NEGATIVE (500 ng/mL); BARBITURATES NEGATIVE (200 ng/mL); BENZODIAZEPINES PRESUMPTIVE POSITIVE (150 ng/mL); BUPRENORPHINE NEGATIVE (10 ng/mL); COCAINE NEGATIVE (150 ng/mL); METHADONE NEGATIVE (200 ng/mL); METHAMPHETAMINE NEGATIVE (500 ng/mL); OPIATES (MORPHINE) NEGATIVE (100 ng/mL); OXYCODONE NEGATIVE (100 ng/mL); PHENCYCLIDINE NEGATIVE (25 ng/mL); PROPOXYPHENE NEGATIVE (300 ng/mL); THC CANNABINOIDS NEGATIVE (50 ng/mL); TRICYCLIC ANTIDEPRESSANTS NEGATIVE (300 ng/mL)
[2018-05-19 21:25] LABS: SOURCE URINE
[2018-05-19 22:10] LABS: BENZODIAZEPINES, URINE SCREEN POSITIVE (200 ng/mL)
[2018-05-20] MEDS ORDERED: TRILEPTAL300 MG PO (00:37)
[2018-05-20] MEDS ORDERED: REMERON30 M2 PO (00:38)
[2018-05-20] MEDS ORDERED: REQUIP0.25 MG PO (00:39)
[2018-05-20] MEDS ORDERED: ONE DAILY1 EAC3 PO (00:39)
[2018-05-20] MEDS ORDERED: FOLIC ACID1 MG PO (00:39)
[2018-05-20] MEDS ORDERED: VITAMIN B-1100 MG PO (00:39)
[2018-05-20 02:34] LABS: HEMATOCRIT 36.2 % (36.0-46.0); HEMOGLOBIN 13.3 G/DL (11.9-15.5); MCH 36.3 PG (29.0-34.0); MCHC 36.7 G/DL (30.0-36.0); MCV 98.9 FL (83-99); RBC DIS.WIDTH-CV 12.7 % (11.8-14.6); RBC DIS.WIDTH-SD 46.3 % (39-53); RED BLOOD COUNT 3.66 M/uL (3.80-5.20)
[2018-05-20 03:12] VITALS: BP 125/76
[2018-05-20 03:56] LABS: MAGNESIUM 1.4 mg/dL (1.3-2.7)
[2018-05-20 04:02] LABS: IMM.PLATELET FRACTION 5.1 (1-7); PLAT.SUFFICIENCY VERY DECREASED; PLATELET COUNT 49 K/uL (156-360)
[2018-05-20 07:20] VITALS: BP 137/73
[2018-05-20 11:40] LABS: CHLORIDE 96 MEQ/L (99-109); CREATININE 0.5 MG/DL (0.6-1.3); GFR ESTIMATE (CALCULATED) > 59 mL/min/; GLUCOSE 129 mg/dL (70-99); POTASSIUM 3.2 MEQ/L (3.7-5.4); SODIUM 136 MEQ/L (136-147); UREA NITROGEN (BUN) 7 mg/dL (9-23)
[2018-05-20 12:39] VITALS: BP 136/96
[2018-05-20 16:20] VITALS: BP 137/92
[2018-05-20 23:40] VITALS: BP 120/62
[2018-05-21] VITALS (7 sets, daily range): BP systolic 98–129; BP diastolic 58–73
[2018-05-21 06:30] LABS: INTER. NORMALIZED RATIO 1.2
[2018-05-21 06:50] LABS: ALBUMIN 2.5 G/DL (3.2-4.8); ALBUMIN 2.5 G/DL (3.4-5.0); ALKALINE PHOSPHATASE 172 IU/L (3-129); ALT (GPT) 30 IU/L (3-49); AST (GOT) 142 IU/L (2-34); CHLORIDE 100 MEQ/L (99-109); CREATININE 0.4 MG/DL (0.6-1.3); DIRECT BILIRUBIN 1.4 mg/dL (0.0-0.3); GFR ESTIMATE (CALCULATED) > 59 mL/min/; GLOBULINS 2.5 G/DL (2.3-3.5); GLUCOSE 99 mg/dL (70-99); POTASSIUM 3.3 MEQ/L (3.7-5.4); SODIUM 138 MEQ/L (136-147); TOTAL BILIRUBIN 2.1 MG/DL (0.0-1.0); TRANSFERRIN (TIBC) 100.8 mg/dL (215-380); UREA NITROGEN (BUN) 3 mg/dL (9-23)
[2018-05-21 06:52] LABS: PHOSPHORUS 1.7 mg/dL (2.5-4.9)
[2018-05-21 06:55] LABS: BASOPHIL (%) 0.6 % (0-1); EOSINOPHIL (%) 3.2 % (0-5); EOSINOPHIL COUNT 0.1 K/uL (0-0.3); HEMATOCRIT 32.2 % (36.0-46.0); IMMATURE GRANULOCYTE (%) 2.3 % (0.0-0.7); LYMPHOCYTE (%) 20.1 % (15-42); LYMPHOCYTE COUNT 0.7 K/uL (1.0-2.8); MCHC 34.8 G/DL (30.0-36.0); MCV 100.6 FL (83-99); MONOCYTE (%) 5.8 % (3-12); MONOCYTE COUNT 0.2 K/uL (0-0.8); NEUTROPHIL COUNT 2.3 K/uL (1.8-6.4); RBC DIS.WIDTH-CV 12.6 % (11.8-14.6); WHITE BLOOD COUNT 3.4 K/uL (4.1-10.2)
[2018-05-21 06:56] LABS: HEMOGLOBIN 11.2 G/DL (11.9-15.5)
[2018-05-21 07:04] LABS: MAGNESIUM 0.6 mg/dl (1.3-2.7)
[2018-05-21 07:08] LABS: IMM.PLATELET FRACTION 7.3 (1-7); PLAT.SUFFICIENCY VERY DECREASED; PLATELET COUNT 41 K/uL (156-360)
[2018-05-21 08:00] LABS: AMYLASE 36 IU/L (1-118); FERRITIN 932 NG/ML (10-291)
[2018-05-21 12:51] LABS: CHLAMYDIA TRACHOMATIS NEGATIVE; NEISSERIA GONORRHOEAE NEGATIVE
[2018-05-22 03:21] VITALS: BP 131/70
[2018-05-22 06:54] VITALS: BP 90/53
[2018-05-22 06:59] LABS: HEMATOCRIT 32.2 % (36.0-46.0); HEMOGLOBIN 11.1 G/DL (11.9-15.5); MCH 35.5 PG (29.0-34.0); MCHC 34.5 G/DL (30.0-36.0); MCV 102.9 FL (83-99); RBC DIS.WIDTH-CV 12.9 % (11.8-14.6); RBC DIS.WIDTH-SD 48.2 % (39-53); RED BLOOD COUNT 3.13 M/uL (3.80-5.20); WHITE BLOOD COUNT 3.7 K/uL (4.1-10.2)
[2018-05-22 07:21] LABS: IMM.PLATELET FRACTION 10.4 (1-7); PLAT.SUFFICIENCY VERY DECREASED; PLATELET COUNT 46 K/uL (156-360)
[2018-05-22 07:25] LABS: CHLORIDE 100 MEQ/L (99-109); CREATININE 0.4 MG/DL (0.6-1.3); GFR ESTIMATE (CALCULATED) > 59 mL/min/; GLUCOSE 89 mg/dL (70-99); SODIUM 133 MEQ/L (136-147); UREA NITROGEN (BUN) 3 mg/dL (9-23)
[2018-05-22 07:26] LABS: MAGNESIUM 1.3 mg/dl (1.3-2.7); PHOSPHORUS < 1.0 mg/dL (2.5-4.9); POTASSIUM 4.1 MEQ/L (3.7-5.4)
[2018-05-22 14:43] VITALS: BP 125/78
[2018-05-22 15:10] VITALS: BP 112/72
[2018-05-22 23:21] VITALS: BP 141/71
[2018-05-23 07:20] VITALS: BP 113/75
[2018-05-23 15:30] VITALS: BP 124/80
[2018-05-24 07:10] LABS: CHLORIDE 105 MEQ/L (99-109); CREATININE 0.4 MG/DL (0.6-1.3); GFR ESTIMATE (CALCULATED) > 59 mL/min/; GLUCOSE 95 mg/dL (70-99); POTASSIUM 3.6 MEQ/L (3.7-5.4); SODIUM 136 MEQ/L (136-147); UREA NITROGEN (BUN) 2 mg/dL (9-23)
[2018-05-24 07:14] VITALS: BP 102/57
[2018-05-24 11:31] VITALS: BP 122/81
[2018-05-24 13:32] LABS: ALBUMIN 2.51 G/DL (3.6-4.9); ALPHA-1 GLOBULIN 0.39 G/DL (0.15-0.40); ALPHA-2 GLOBULIN 0.66 G/DL (0.45-0.85); BETA-GLOBULIN 0.65 G/DL (0.65-1.15); GAMMA-GLOBULIN 0.81 G/DL (0.60-1.35)
[2018-05-24 16:10] VITALS: BP 115/67
[2018-05-24 19:25] VITALS: BP 119/79
[2018-05-24 23:19] VITALS: BP 112/68
[2018-05-25 06:39] LABS: ALBUMIN 2.3 G/DL (3.2-4.8); ALKALINE PHOSPHATASE 169 IU/L (3-129); ALT (GPT) 30 IU/L (3-49); AST (GOT) 112 IU/L (2-34); CHLORIDE 105 MEQ/L (99-109); CREATININE 0.4 MG/DL (0.6-1.3); GFR ESTIMATE (CALCULATED) > 59 mL/min/; GLUCOSE 92 mg/dL (70-99); MAGNESIUM 1.2 mg/dl (1.3-2.7); POTASSIUM 3.9 MEQ/L (3.7-5.4); SODIUM 139 MEQ/L (136-147); TOTAL PROTEIN 4.6 G/DL (6.4-8.3); UREA NITROGEN (BUN) 2 mg/dL (9-23)
[2018-05-25 06:40] VITALS: BP 107/65
[2018-05-25 06:43] LABS: TOTAL BILIRUBIN 1.4 MG/DL (0.0-1.0)
[2018-05-25 12:05] VITALS: BP 102/65
[2018-05-25 15:05] VITALS: BP 110/70
[2018-05-25 20:00] VITALS: BP 122/80
[2018-05-25 23:57] VITALS: BP 125/75
[2018-05-26 06:42] LABS: CHLORIDE 106 MEQ/L (99-109); CREATININE 0.4 MG/DL (0.6-1.3); GFR ESTIMATE (CALCULATED) > 59 mL/min/; GLUCOSE 92 mg/dL (70-99); POTASSIUM 4.3 MEQ/L (3.7-5.4); SODIUM 138 MEQ/L (136-147); UREA NITROGEN (BUN) 2 mg/dL (9-23)
[2018-05-26 06:46] LABS: MAGNESIUM 1.4 mg/dl (1.3-2.7)
[2018-05-26 06:50] VITALS: BP 107/59
[2018-05-26 13:20] VITALS: BP 107/67
[2018-05-26 16:00] VITALS: BP 106/67
[2018-05-26 23:00] VITALS: BP 113/67
[2018-05-27 07:45] VITALS: BP 106/58
[2018-05-27 08:32] LABS: HEMATOCRIT 32.3 % (36.0-46.0); HEMOGLOBIN 10.6 G/DL (11.9-15.5); MCH 35.5 PG (29.0-34.0); MCHC 32.8 G/DL (30.0-36.0); PLATELET COUNT 264 K/uL (156-360); RBC DIS.WIDTH-CV 14.2 % (11.8-14.6); RBC DIS.WIDTH-SD 56.8 % (39-53); RED BLOOD COUNT 2.99 M/uL (3.80-5.20); WHITE BLOOD COUNT 6.7 K/uL (4.1-10.2)
[2018-05-27 08:45] LABS: ALBUMIN 2.5 G/DL (3.2-4.8); ALKALINE PHOSPHATASE 144 IU/L (3-129); ALT (GPT) 33 IU/L (3-49); AST (GOT) 116 IU/L (2-34); CHLORIDE 100 MEQ/L (99-109); CREATININE 0.5 MG/DL (0.6-1.3); GFR ESTIMATE (CALCULATED) > 59 mL/min/; GLUCOSE 112 mg/dL (70-99); MAGNESIUM 1.5 mg/dl (1.3-2.7); POTASSIUM 4.4 MEQ/L (3.7-5.4); SODIUM 135 MEQ/L (136-147); TOTAL PROTEIN 4.8 G/DL (6.4-8.3); UREA NITROGEN (BUN) 4 mg/dL (9-23)
[2018-05-27 08:50] LABS: TOTAL BILIRUBIN 1.1 MG/DL (0.0-1.0)
[2018-05-27 09:04] LABS: FOLIC ACID (FOLATE) 14.4 NG/ML (5.0-22.0)
[2018-05-27] MEDS ORDERED: PANTOPRAZOLE SO40 MG PO (10:58)
[2018-05-27 15:38] VITALS: BP 100/56
[2018-05-27 23:38] VITALS: BP 102/56
[2018-05-28 01:48] LABS: HEMATOCRIT 31.5 % (36.0-46.0); HEMOGLOBIN 10.8 G/DL (11.9-15.5); MCH 35.5 PG (29.0-34.0); MCHC 34.3 G/DL (30.0-36.0); MCV 103.6 FL (83-99); NRBC (%) 0.4 /100 WBC (0-0); PLATELET COUNT 266 K/uL (156-360); RBC DIS.WIDTH-CV 14.1 % (11.8-14.6); RBC DIS.WIDTH-SD 53.7 % (39-53); RED BLOOD COUNT 3.04 M/uL (3.80-5.20); WHITE BLOOD COUNT 5.5 K/uL (4.1-10.2)
[2018-05-28 01:55] LABS: APPEARANCE CLOUDY ((CLEAR)); BILIRUBIN NEGATIVE; BLOOD NEGATIVE; COLOR AMBER ((YELLOW)); GLUCOSE (STRIP) NEGATIVE; KETONES NEGATIVE; LEUKOCYTES NEGATIVE; NITRITE NEGATIVE; PROTEIN (STRIP) 100; SPECIFIC GRAVITY 1.018 (1.000-1.030)
[2018-05-28 01:57] LABS: ALBUMIN 2.8 g/dL (3.2-4.8); CHLORIDE 98 mEq/L (99-109)
[2018-05-28 01:58] LABS: POTASSIUM 3.9 mEq/L (3.7-5.4); SODIUM 130 mEq/L (136-147)
[2018-05-28 02:00] LABS: GLUCOSE 150 mg/dL (70-99); TOTAL PROTEIN 5.8 g/dL (6.4-8.3)
[2018-05-28 02:02] LABS: TOTAL BILIRUBIN 1.1 mg/dL (0.0-1.0)
[2018-05-28 02:03] LABS: ALKALINE PHOSPHATASE 161 IU/L (3-129); CREATININE 0.7 mg/dL (0.6-1.3); GFR ESTIMATE (CALCULATED) > 59 mL/min/
[2018-05-28 02:05] LABS: AST (GOT) 117 IU/L (2-34); UREA NITROGEN (BUN) 7 mg/dL (9-23)
[2018-05-28 02:06] LABS: ALT (GPT) 36 IU/L (3-49)
[2018-05-28 02:31] LABS: ABS NEUTROPHIL COUNT 3.8; ANISOCYTOSIS 2+; BAND NEUTROPHILS 4.3 % (0-8.0); BASOPHILS 0.9 %; EOSINOPHIL ABS CT 0; GIANT PLATELETS 2+; LYMPHOCYTES 10.4 % (15.0-45.0); MACROCYTES 2+; METAMYELOCYTES 0.9 %; MONOCYTES 18.3 % (0-9.0); MYELOCYTES 0.9 %; NUCLEATED RBC'S 0.9; PLAT.SUFFICIENCY ADEQUATE; SEG.NEUTROPHILS 64.3 % (46.0-76.0); TOX.VACUOLIZATION 2+
[2018-05-28 03:06] VITALS: BP 83/45
[2018-05-28 03:37] LABS: BACTERIA NONE SEEN /HPF; EPITHELIAL CELLS 4+ /HPF; MUCUS TRACE /LPF; RED BLOOD CELLS 0-5 /HPF (0-5); WHITE BLOOD CELLS 0-5 /HPF (0-5)
[2018-05-28 05:31] LABS: HEMATOCRIT 29.3 % (36.0-46.0); HEMOGLOBIN 9.6 G/DL (11.9-15.5); MCH 35.2 PG (29.0-34.0); MCHC 32.8 G/DL (30.0-36.0); MCV 107.3 FL (83-99); PLATELET COUNT 255 K/uL (156-360); RBC DIS.WIDTH-SD 55.3 % (39-53); RED BLOOD COUNT 2.73 M/uL (3.80-5.20); WHITE BLOOD COUNT 4.6 K/uL (4.1-10.2)
[2018-05-28 06:04] VITALS: BP 90/56
[2018-05-28 06:10] LABS: ALBUMIN 2.1 G/DL (3.2-4.8); ALKALINE PHOSPHATASE 122 IU/L (3-129); ALT (GPT) 23 IU/L (3-49); AST (GOT) 74 IU/L (2-34); CHLORIDE 104 MEQ/L (99-109); CREATININE 0.5 MG/DL (0.6-1.3); GFR ESTIMATE (CALCULATED) > 59 mL/min/; POTASSIUM 3.6 MEQ/L (3.7-5.4); SODIUM 134 MEQ/L (136-147); TOTAL PROTEIN 4.4 G/DL (6.4-8.3); UREA NITROGEN (BUN) 7 mg/dL (9-23)
[2018-05-28 06:21] LABS: GLUCOSE 97 mg/dL (70-99); TOTAL BILIRUBIN 0.8 MG/DL (0.0-1.0)
[2018-05-28 08:30] VITALS: BP 131/63
[2018-05-28 23:59] VITALS: BP 125/68
[2018-05-29 06:57] LABS: LIPASE 10 U/L (1.0-51.0)
[2018-05-29 07:43] LABS: HEMATOCRIT 37.8 % (36.0-46.0); MCH 35.6 PG (29.0-34.0); MCHC 31.5 G/DL (30.0-36.0); PLATELET COUNT 282 K/uL (156-360); RBC DIS.WIDTH-CV 14.4 % (11.8-14.6); RBC DIS.WIDTH-SD 59.9 % (39-53); WHITE BLOOD COUNT 5.2 K/uL (4.1-10.2)
[2018-05-29 07:45] LABS: HEMOGLOBIN 11.9 G/DL (11.9-15.5); MCV 113.2 FL (83-99); RED BLOOD COUNT 3.34 M/uL (3.80-5.20)
[2018-05-29 07:53] LABS: CHLORIDE 108 MEQ/L (99-109); CREATININE 0.5 MG/DL (0.6-1.3); GFR ESTIMATE (CALCULATED) > 59 mL/min/; GLUCOSE 110 mg/dL (70-99); POTASSIUM 4.1 MEQ/L (3.7-5.4); SODIUM 137 MEQ/L (136-147); UREA NITROGEN (BUN) 5 mg/dL (9-23)
[2018-05-29 08:15] VITALS: BP 96/55
[2018-05-29 11:21] LABS: BENZODIAZEPINES, URINE SCREEN POSITIVE (200 ng/mL)
[2018-05-29 11:30] VITALS: BP 113/55
[2018-05-29 15:00] VITALS: BP 115/66
[2018-05-29 23:02] VITALS: BP 118/68
[2018-05-30 06:45] VITALS: BP 113/70
[2018-05-30 10:01] LABS: HEMATOCRIT 31.9 % (36.0-46.0); HEMOGLOBIN 10.4 G/DL (11.9-15.5); MCH 35.5 PG (29.0-34.0); MCHC 32.6 G/DL (30.0-36.0); MCV 108.9 FL (83-99); PLATELET COUNT 342 K/uL (156-360); RBC DIS.WIDTH-CV 13.9 % (11.8-14.6); RBC DIS.WIDTH-SD 56.3 % (39-53); RED BLOOD COUNT 2.93 M/uL (3.80-5.20); WHITE BLOOD COUNT 5.2 K/uL (4.1-10.2)
[2018-05-30 10:19] LABS: CHLORIDE 105 MEQ/L (99-109); CREATININE 0.5 MG/DL (0.6-1.3); GFR ESTIMATE (CALCULATED) > 59 mL/min/; GLUCOSE 116 mg/dL (70-99); POTASSIUM 4.4 MEQ/L (3.7-5.4); SODIUM 137 MEQ/L (136-147); UREA NITROGEN (BUN) 5 mg/dL (9-23)
[2018-05-30 11:00] VITALS: BP 120/67
[2018-05-30 15:00] VITALS: BP 118/75
[2018-05-30 23:01] VITALS: BP 129/80
[2018-05-31 05:37] LABS: HEMATOCRIT 30.6 % (36.0-46.0); HEMOGLOBIN 10.1 G/DL (11.9-15.5); MCH 35.3 PG (29.0-34.0); PLATELET COUNT 357 K/uL (156-360); RBC DIS.WIDTH-CV 13.6 % (11.8-14.6); RBC DIS.WIDTH-SD 54.2 % (39-53); RED BLOOD COUNT 2.86 M/uL (3.80-5.20); WHITE BLOOD COUNT 4.5 K/uL (4.1-10.2)
[2018-05-31 05:59] LABS: CHLORIDE 106 MEQ/L (99-109); CREATININE 0.4 MG/DL (0.6-1.3); GFR ESTIMATE (CALCULATED) > 59 mL/min/; GLUCOSE 88 mg/dL (70-99); POTASSIUM 4.2 MEQ/L (3.7-5.4); SODIUM 143 MEQ/L (136-147); UREA NITROGEN (BUN) 5 mg/dL (9-23)
[2018-05-31 06:51] VITALS: BP 109/71
[2018-05-31 15:09] VITALS: BP 124/77
[2018-05-31 23:16] VITALS: BP 117/64
[2018-06-01 07:30] VITALS: BP 116/69
[2018-06-01 10:59] VITALS: BP 123/80
[2018-06-01 16:56] VITALS: BP 117/78
[2018-06-01 23:01] VITALS: BP 130/87
[2018-06-02 06:17] LABS: HEMATOCRIT 30.2 % (36.0-46.0); HEMOGLOBIN 9.8 G/DL (11.9-15.5); MCH 34.5 PG (29.0-34.0); MCHC 32.5 G/DL (30.0-36.0); MCV 106.3 FL (83-99); NRBC (%) 0.4 /100 WBC (0-0); RBC DIS.WIDTH-SD 54.8 % (39-53); RED BLOOD COUNT 2.84 M/uL (3.80-5.20); WHITE BLOOD COUNT 8.1 K/uL (4.1-10.2)
[2018-06-02 06:18] LABS: PLATELET COUNT 510 K/uL (156-360)
[2018-06-02 06:41] LABS: CHLORIDE 104 MEQ/L (99-109); CREATININE 0.5 MG/DL (0.6-1.3); GFR ESTIMATE (CALCULATED) > 59 mL/min/; GLUCOSE 81 mg/dL (70-99); MAGNESIUM 1.4 mg/dl (1.3-2.7); POTASSIUM 4.6 MEQ/L (3.7-5.4); SODIUM 141 MEQ/L (136-147); UREA NITROGEN (BUN) 4 mg/dL (9-23)
[2018-06-02 07:25] VITALS: BP 116/58
[2018-06-02 16:55] VITALS: BP 129/68
[2018-06-02 23:08] VITALS: BP 137/74
[2018-06-03 07:00] VITALS: BP 125/74
[2018-06-03] MEDS ORDERED: LINEZOLID600 MG PO (09:59)
[2018-06-03] MEDS ORDERED: ONDANSETRON ODT4 MG PO (09:59)
[2018-06-03] MEDS ORDERED: ZIPRASIDONE HCL20 MG PO (09:59)
[2018-06-03] MEDS ORDERED: PANTOPRAZOLE SO40 MG PO (10:00)
== END 2018-06-03 11:35 | disposition other institution (70) | DRG 438 ==
LOC: EME 19:11 → 5EAST 05-20 01:05 → EDOF 05-20 01:05 → ENRESERV 05-20 01:07 → 5EAST 05-20 02:59
PROVIDERS: Hospitalist; Internal Medicine; Internal Medicine Hematology & Oncology; Physician Assistant; Specialist
PROC: HZ2ZZZZ Detoxification Services for Substance Abuse Treatment (ICD-10-PCS; principal; 2018-05-20)
PROC: 0DJ08ZZ Inspection of Upper Intestinal Tract, Via Natural or Artificial Opening Endoscopic (ICD-10-PCS; 2018-05-26)
DX: K85.20 Alcohol induced acute pancreatitis without necrosis or infection (principal); K86.1 Other chronic pancreatitis; N39.0 Urinary tract infection, site not specified; B96.20 Unspecified Escherichia coli [E. coli] as the cause of diseases classified elsewhere; F10.231 Alcohol dependence with withdrawal delirium; Y90.8 Blood alcohol level of 240 mg/100 ml or more; R44.3 Hallucinations, unspecified; T82.7XXA Infection and inflammatory reaction due to other cardiac and vascular devices, implants and grafts, initial encounter; T82.898A Other specified complication of vascular prosthetic devices, implants and grafts, initial encounter; Y84.8 Other medical procedures as the cause of abnormal reaction of the patient, or of later complication, without mention of misadventure at the time of the procedure; A41.01 Sepsis due to Methicillin susceptible Staphylococcus aureus; I80.8 Phlebitis and thrombophlebitis of other sites; E87.2 Acidosis; K29.20 Alcoholic gastritis without bleeding; K70.9 Alcoholic liver disease, unspecified; E83.118 Other hemochromatosis; B18.2 Chronic viral hepatitis C; K29.80 Duodenitis without bleeding; E83.42 Hypomagnesemia; E83.39 Other disorders of phosphorus metabolism; D61.818 Other pancytopenia; E83.51 Hypocalcemia; I27.20 Pulmonary hypertension, unspecified; J44.9 Chronic obstructive pulmonary disease, unspecified; G43.909 Migraine, unspecified, not intractable, without status migrainosus; M79.7 Fibromyalgia; K21.9 Gastro-esophageal reflux disease without esophagitis; F31.9 Bipolar disorder, unspecified; E87.6 Hypokalemia; F41.9 Anxiety disorder, unspecified; G40.909 Epilepsy, unspecified, not intractable, without status epilepticus; F17.210 Nicotine dependence, cigarettes, uncomplicated; E78.5 Hyperlipidemia, unspecified; E46 Unspecified protein-calorie malnutrition; Z59.0 Homelessness; Z86.73 Personal history of transient ischemic attack (TIA), and cerebral infarction without residual deficits
CPT/HCPCS: 70450; 70486; 71045; 74177; 74183; 80048; 80053; 80076; 80202; 80306 90; 81003; 81256 90; 82140; 82150; 82390; 82525 90; 82607; 82728; 82746; 82948; 83605; 83690; 83735; 84100; 84165; 84466; 84702; 84999; 85025; 85027; 85610; 86256 90; 87040; 87077; 87086; 87147; 87186; 87491; 87591; 87801; 93005; 93306; 99281; 99285; C9113; G0480; J0690; J0696; J1170; J1650; J2060; J2405; J2765; J3370; J3411; J3475; J3480; J3486; J7030; J7040; J7042; J7050